=== PATIENT | male | born 1950 | race Caucasian/White ===

== ENCOUNTER → 2017-01-26 | Outpatient (CLI) | payer MEDICARE, BC ==
[~2017-01-26] MED LIST: AGM875T; ALLP300T PO; ALPR0.5T72; AMOX-358 PO; ASP81CT PO; CARI350T27; CEFD300C3 PO; CEPH500C; CHOL200035 PO; CYAN100071 PO; ETD400T; GLIP10TA13 PO; GLIP10TA23; HYDR-3720; LOSA1TAB3 PO; MTF500T PO; MTP25TSR PO; MULT-851 PO; MULT1TAB5; MULT1TAB5 PO; NAPR220C11 PO; OMG1KC PO; OXYC-188; SULF-222 PO; WRF10T; WRF10T PO; [UNRECOGNIZED DRUG - OTHER]; [UNRECOGNIZED DRUG - REMARK]
--- NOTE | 2017-01-27 13:38 | ECHOCARDIOGRAPHY REPORT ---
DATE OF SERVICE: 01/26/2017 PROCEDURE: TWO-DIMENSIONAL Echocardiogram REFERRING PHYSICIAN: Dr. Mcdowell. INDICATION: Sepsis. MEASUREMENTS: LVID end diastolic 4.1. IVS thickness 1.1. LVPW thickness 1.1. Left atrial diameter of 3.7. Ejection fraction 60%. FINDINGS: 1. Technical quality is good. 2. The left ventricle is normal in size with normal contractility, systolic function appeared to be normal. Estimated ejection fraction 60%. 3. The left atrium is normal in size. No clot or thrombus were seen within the left atrium. 4. The right atrium and right ventricle are normal in size. No clot or thrombus were seen within the right side. 5. Mitral valve is normal in morphology with mild mitral regurgitation noted by color Doppler flow. No mitral valve prolapse. No mitral valve stenosis. 6. 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 Appeared to be functioning normally. Doppler across the prosthetic valve estimated the peak gradient of 22 mmHg, mean gradient of 11 mmHg, calculated valve area of 2.1 sq cm. 7. Tricuspid valve is normal in morphology with mild tricuspid regurgitation noted by color Doppler flow. Doppler across the tricuspid valve estimated pulmonary artery pressure of 24 plus right atrial pressure. 8. Pulmonic valve is functioning normally. 9. No pericardial effusion. CONCLUSION: 1. Normal left ventricular size and systolic function. Estimated ejection fraction is 60%. 2. 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 3. Mild mitral and tricuspid regurgitation. 4. Estimated pulmonary artery pressure of 30 mmHg. Job ID: [id number] DocumentID: [id number] Dictated Date: 01/26/2017 17:23:45 [employer] Alarm Installer Date: 01/26/2017 17:39:44 Dictated By: CURTIS COLE MD
== END ==
LOC: CARD 08:01
PROVIDERS: ATTEND Internal Medicine Cardiovascular Disease
DX: I25.10 Atherosclerotic heart disease of native coronary artery without angina pectoris (principal); I65.23 Occlusion and stenosis of bilateral carotid arteries; I10 Essential (primary) hypertension; E11.9 Type 2 diabetes mellitus without complications; E78.2 Mixed hyperlipidemia
CPT/HCPCS: 93306

== ENCOUNTER → 2017-05-11 | Outpatient (CLI) | payer MEDICARE, BC ==
[~2017-05-11] MED LIST changes: +CATHETER FLUSH 10 ML SYR IV PRN
== END ==
LOC: CARD 07:24
PROVIDERS: ATTEND Internal Medicine Cardiovascular Disease
DX: I25.10 Atherosclerotic heart disease of native coronary artery without angina pectoris (principal); I65.23 Occlusion and stenosis of bilateral carotid arteries; I10 Essential (primary) hypertension; E78.2 Mixed hyperlipidemia; E11.9 Type 2 diabetes mellitus without complications

== ENCOUNTER → 2017-05-20 | Outpatient (CLI) | payer MEDICARE, BC ==
[2017-05-20 09:02] VITALS: BP 150/75
[2017-05-20 09:14] VITALS: BP 166/72
[2017-05-20 09:16] VITALS: BP 163/79
[2017-05-20 09:19] VITALS: BP 151/92
--- NOTE | 2017-05-21 04:57 | STRESS TEST ---
DATE OF SERVICE: 05/20/2017 EXERCISE MYOVIEW STRESS TEST REPORT REFERRING PHYSICIAN: Dr. Mcdowell. TEST DATE: 05/20/2017. Baseline heart rate is 75. Baseline blood pressure is 159/80. Baseline EKG is sinus rhythm with no ischemic changes. In summary, the patient was injected with 10.91 mCi of technetium-99 Myoview and the resting images were obtained. Then, the patient started exercising with a baseline heart rate, blood pressure and EKG mentioned above. The patient was able to exercise for a total of 3 minutes and 45 seconds on standard Noe protocol, achieving maximum heart rate of 139. Prior to the peak exercise level, he was injected with 32.5 mCi of technetium-99 Myoview. With peak exercise level, EKG was showing minimal nondiagnostic changes. Blood pressure was at peak of 190/72. During recovery, heart rate and blood pressure returned to baseline. EKG returned to baseline. The resting and stress images were reviewed and compared in the short axis, horizontal long axis and vertical long axis views. Review of the images showed diaphragmatic attenuation with typical male pattern. Mild decreased uptake involving the mid to apical inferior wall with no significant reversibility. SSS is 2, SDS 2, TID value 1.02. On the gated images, the left ventricle appeared to be normal size with normal contractility. Calculated ejection fraction 54%. CONCLUSION: 1. Fair exercise tolerance, a total of 3 minutes and 45 seconds on standard Noe protocol, total of 5.4 METs achieving 91% of maximum expected heart rate. 2. Appropriate heart rate and blood pressure response to exercise returned to baseline during recovery. 3. Nondiagnostic EKG changes with exercise returned to baseline during recovery. 4. Diaphragmatic attenuation with typical male pattern with no significant ischemia or infarction on SPECT images. 5. Normal left ventricular size with normal contractility, calculated ejection fraction 54%. Job ID: [id number] DocumentID: [id number] Dictated Date: 05/20/2017 16:09:36 Pitch Gatherer Date: 05/20/2017 18:29:31 Dictated By: CURTIS COLE MD
== END ==
LOC: CARD 07:44
PROVIDERS: ATTEND Internal Medicine Cardiovascular Disease
DX: I25.10 Atherosclerotic heart disease of native coronary artery without angina pectoris (principal); I65.23 Occlusion and stenosis of bilateral carotid arteries; E11.9 Type 2 diabetes mellitus without complications; I10 Essential (primary) hypertension; E78.2 Mixed hyperlipidemia
CPT/HCPCS: 78452; 93017

== ENCOUNTER → 2018-09-14 | Outpatient (CLI) | payer MEDICARE, BC ==
[~2018-09-14] MED LIST changes: -CATHETER FLUSH 10 ML SYR IV PRN
== END ==
LOC: CARD 08:24
PROVIDERS: ATTEND Internal Medicine Cardiovascular Disease
DX: I25.10 Atherosclerotic heart disease of native coronary artery without angina pectoris (principal); I65.23 Occlusion and stenosis of bilateral carotid arteries; E11.9 Type 2 diabetes mellitus without complications; I10 Essential (primary) hypertension; E78.2 Mixed hyperlipidemia; I08.2 Rheumatic disorders of both aortic and tricuspid valves; Z95.2 Presence of prosthetic heart valve
CPT/HCPCS: 93306

== ENCOUNTER 2020-03-31 18:07 | Emergency (ER) | payer MEDICARE, BC ==
[~2020-03-31] VITALS: Ht 177.8 cm; Wt 96.2 kg
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
--- OUTSIDE RECORDS SUMMARY | 2020-03-31 18:12 | XMS REPORT | CCD ---
Author Author Dionisio Solo D.O. Organization [facility] DO [facility] Address [address] [place] [address] Phone Care Team Providers Care Commuter Train Operator Name Role Phone PP Unavailable CCM Unavailable Summary Purpose Interface Exchange Insurance Providers Payer name Policy type / Coverage type Covered republican ID Effective Begin Date Effective End Date WPS MEDICARE PART B [place] Blue Cross/Blue Shield [id number] 2019 216 Unknown Blue Cross Blue Shield Blue Cross/Blue Shield [id number] 2019 Unknown Family History Family History data not found Social History Social History Element Codes Description Effective Dates Marital status Unknown 11/14/2019 Number of children Unknown 2 11/14/2019 Employment Unknown Currently employed 11/14/2019 Allergies, Adverse Reactions, Alerts Substance Reaction Codes Entered Date Inactivated Date Status * NO KNOWN ENVIRONMENTAL ALLERGIES Unknown 11/14/2019 N o Inactive Date Active * NO KNOWN FOOD ALLERGIES Unknown 11/14/2019 No Inactiv e Date Active _ Unknown 11/14/2019 No Inactive Date Active Problems Condition Codes Effective Dates Condition Status Diabetic neuropathy ICD-9: 250.60 ICD-10: E11.40 11/14/2019 Active Essential hypertension ICD-9: 401.9 ICD-10: I10 11/14/2019 Active Hypertension Unknown 11/14/2019 Active H/O aortic valve replacement ICD-9: V43.3 ICD-10: Z95.2 11/14/2019 Active Mixed hyperlipidemia ICD-9: 272.2 ICD-10: E78.2 11/14/2019 Active Medications Medication Codes Instructions Start Date Stop Date Status Fill Instructions allopurinol 100 mg tablet RxNorm: 958583 1 Tablet(s) Oral QD 201905/21/2020 Active gabapentin 100 mg capsule RxNorm: 484366 2 Capsule(s) O ral QAM and 3 capsules in the evening 11/24/2019 05/22/2020 Active gabapentin 100 mg capsule RxNorm: 379682 2 Capsule(s) O ral QAM and 3 capsules in the evening 11/24/2019 11/23/2019 Inactive clonidine HCl 0.2 mg tablet RxNorm: 156697 2 Tablet(s) Oral QD 10/29 No Stop Date Active meloxicam 15 mg tablet RxNorm: 264309 1 Tablet(s) Oral QD 0 No Stop Date Active telmisartan 80 mg-hydrochlorothiazide 25 mg tablet RxNorm: 4 52963 1 Tablet(s) Oral QAM 11/16/2019 02/14/2020 Inactive glipizide 10 mg tablet RxNorm: 513469 1 Tablet(s) Oral QD 11/16/2019 02/14/2020 Inactive citalopram 10 mg tablet RxNorm: 016325 1 Tablet(s) Oral QD 11/16/19 No Stop Date Active metformin 500 mg tablet RxNorm: 098658 2 Tablet(s) Oral QD 11/16/19 20 02/14/2020 Inactive finasteride 5 mg tablet RxNorm: 959378 1 Tablet(s) Oral QD 11/16/19 No Stop Date Active amlodipine 10 mg tablet RxNorm: 929454 1 Tablet(s) Oral QD 11/16/19 20 02/14/2020 Inactive Coumadin 10 mg tablet RxNorm: 650963 1 Tablet(s) Oral M on, , Thu, ,Sat, and Sun then 10.5mg on 11/16/2019 11/16/2019 Inactive Fish Oil 120 mg-180 mg-60 mg-1,200 mg capsule,delayed releas e RxNorm: 2 Capsule(s) Oral QD 11/16/2019 No Stop Date Active Calcium 600 + D(3) 600 mg (1,500 mg)-200 unit tablet RxNorm: 576192 1 Tablet(s) Oral QD 11/16/2019 No Stop Date Active hydralazine 10 mg tablet RxNorm: 104035 2 Tablet(s) Oral QD 020 02/14/2020 Inactive vitamin E 1,000 unit capsule RxNorm: 220618 1 Capsule(s) Oral QD No Stop Date Active metoprolol succinate ER 50 mg tablet,extended release 24 hr RxNorm: 250370 1 Tablet(s) Oral QD 11/16/2019 No Stop Date Active Vitamin C 1,000 mg tablet RxNorm: 832016 1 Tablet(s) Oral QD 2019 No Stop Date Active multivitamin tablet RxNorm: 1 Tablet(s) Oral QD 11/16/2019 No Stop D ate Active aspirin 81 mg tablet,delayed release RxNorm: 815575 1 Tablet(s) Oral QD 11/16/2019 No Stop Date Active rosuvastatin 5 mg tablet RxNorm: 361372 1 Tablet(s) Oral every night at bedtime 11/16/2019 02/14/2020 Inactive Tylenol Arthritis Pain 650 mg tablet,extended release RxNorm : 7313406 3 Tablet(s) Oral QD 11/16/2019 No Stop Date Active tamsulosin 0.4 mg capsule RxNorm: 603712 1 Capsule(s) Oral QPM before supper 11/16/2019 No Stop Date Active allopurinol 100 mg tablet RxNorm: 912340 1 Tablet(s) Oral QD 201902/14/2020 Inactive Coumadin 10 mg tablet RxNorm: 601866 1 Tablet(s) Oral M on, , Thu, , Sat & Sun then 10.5mg on 11/16/2019 11/15/2019 Inactive Vitamin B12 1000mcg Tablet RxNorm: 1 Tablet(s) Oral QD 11/16/2019 02/14/2020 Inactive gabapentin 100 mg capsule RxNorm: 052456 2 Capsule(s) O ral QAM and 3 capsules in the evening 11/16/2019 11/23/2019 Inactive Medication Administered No Medication Administered data Immunizations No Immunization data Results No Results data Procedures No Procedures data Vital Signs Date Vital 02/14/2020 Blood Pressure 1: 134/82 Code: 8480-6 Heart Rate 1: 77 bpm Respiratory Rate: 18 bpm SpO2: 99% Temperature: 36.9 (C) / 98.4 (F) We ight: 222 lbs 11/14/2019 Blood Pressure 1: 124/82 Code: 8480-6 BMI: 30.8 Code: 63789-4 Heart Rate 1: 76 bpm Height: 5'11" Respiratory Rate: 20 bpm SpO2: 98% Tempera ture: 36.8 (C) / 98.2 (F) Weight: 221 lbs Functional Status No Functional Status data Reason For Visit Reason For Visit Effective Dates Notes follow up 02/14/2020 pt /inr ~generic 11/14/2019 New Patient--nael hernandez visit Encounters Encounter Performer Location Codes Date () OFFICE/OUTPATIENT VISIT EST Diagnosis: Diabetic neuropathy[ICD10: E11.40] Diagnosis: Essential hypertension[ICD10: I10] Carolynn KIRAN [employer] CPT-4: 86894 02/14/2020 OFFICE/OUTPATIENT VISIT NEW Diagnosis: Diabetic neuropathy[ICD10: E11.40] Diagnosis: H/O aortic valve replacement[ICD10: Z95.2] Diagnosis: Essential hypertension[ICD10: I10] Diagnosis: Mixed hyperlipidemia[ICD10: E78.2] Carolynn KIRAN [employer] CPT-4: 00754 11/14/2019 Plan of Care Planned Activity Notes Codes Status Date Visit Diagnosis Plan: Diabetic neuropathy Discussion: Update HbA1C with next PT/INR Follow Up: 4 months ICD-9 : 250.60 ICD-10 : E11.40 02/14/2020 Visit Diagnosis Plan: Essential hypertension Discussio n: Stable ICD-9 : 401.9 ICD-10 : I10 02/14/2020 [facility] [phone] [facility] [facility] 02/14/2020 Visit Diagnosis Plan: H/O aortic valve replacement Dis cussion: On coumadin--cardiology monitors ICD-9 : V43.3 ICD-10 : Z95.2 11/14/2019 Visit Diagnosis Plan: Diabetic neuropathy Discussion: On gabapentin Go tomorrow for fasting lab Recommend Diabetic shoes with inserts Follow Up: 3 months Discussion: On gabapentin Go tomorrow for fasting lab Follow Up: 3 months ICD-9 : 250.60 ICD-10 : E11.40 11/14/2019 Visit Diagnosis Plan: Mixed hyperlipidemia Discussion: Lipids every 6mos ICD-9 : 272.2 ICD-10 : E78.2 11/14/2019 Visit Diagnosis Plan: Essential hypertension Discussio n: Stable ICD-9 : 401.9 ICD-10 : I10 11/14/2019 App[facility]ment: Carolynn Solo [facility]el[facility] [phone] [id number] NEW [facility]IENT 11/14/2019 Instructions No Instructions Medical Equipment No Medical Equipment data Health Concerns Section Health Concerns data not found Goals Section Goals data not found Interventions Section Interventions data not found Health Status Evaluations/Outcomes Section Health Status Evaluations/Outcomes data not found Advance Directives No Advance Directive data
--- OUTSIDE RECORDS SUMMARY | 2020-03-31 18:12 | XMS REPORT | CCD ---
Author Author Dionisio Solo D.O. Organization [facility] Address [address] [place] [address] Phone Care Team Providers Care Hair Spring Winder Name Role Phone PP Unavailable CCM Unavailable Summary Purpose Interface Exchange Insurance Providers Payer name Policy type / Coverage type Covered constitution party ID Effective Begin Date Effective End Date WPS MEDICARE PART B [place] Blue Cross/Blue Shield [id number] 2019 216 Unknown Blue Cross Blue Shield Blue Cross/Blue Shield [id number] 2019 Unknown Family History Family History data [...] Date Stop Date Status Fill Instructions allopurinol 300 mg tablet RxNorm: 026333 1 Tablet(s) Oral QD 201905/27/2020 Active allopurinol 300 mg tablet RxNorm: 1 Tablet(s) Oral QD 201902/26/2020 Inactive allopurinol 100 mg tablet RxNorm: 939180 1 Tablet(s) Oral QD 201902/26/2020 Inactive gabapentin 100 mg capsule RxNorm: 367516 2 Capsule(s) O ral QAM and 3 capsules in the evening 11/24/2019 05/22/2020 Active gabapentin 100 mg capsule RxNorm: 547376 2 Capsule(s) O ral QAM and 3 capsules in the evening 11/24/2019 11/23/2019 Inactive clonidine HCl 0.2 mg tablet RxNorm: 009270 2 Tablet(s) Oral QD 10/29 No Stop Date Active meloxicam 15 mg tablet RxNorm: 958513 1 Tablet(s) Oral QD 0 No Stop Date Active telmisartan 80 mg-hydrochlorothiazide 25 mg tablet RxNorm: 4 53315 1 Tablet(s) Oral QAM 11/16/2019 02/14/2020 Inactive glipizide 10 mg tablet RxNorm: 555958 1 Tablet(s) Oral QD 11/16/2019 02/14/2020 Inactive citalopram 10 mg tablet RxNorm: 454316 1 Tablet(s) Oral QD 11/16/19 No Stop Date Active metformin 500 mg tablet RxNorm: 434029 2 Tablet(s) Oral QD 11/16/19 20 02/14/2020 Inactive finasteride 5 mg tablet RxNorm: 124780 1 Tablet(s) Oral QD 11/16/19 No Stop Date Active amlodipine 10 mg tablet RxNorm: 969865 1 Tablet(s) Oral QD 11/16/19 20 02/14/2020 Inactive Coumadin 10 mg tablet RxNorm: 460015 1 Tablet(s) Oral M on, Tu, Wed, Th,Sat, and Sun then 10.5mg on 11/16/2019 11/16/2019 Inactive Fish Oil 120 mg-180 mg-60 mg-1,200 mg capsule,delayed releas e RxNorm: 2 Capsule(s) Oral QD 11/16/2019 No Stop Date Active Calcium 600 + D(3) 600 mg (1,500 mg)-200 unit tablet RxNorm: 847001 1 Tablet(s) Oral QD 11/16/2019 No Stop Date Active hydralazine 10 mg tablet RxNorm: 839860 2 Tablet(s) Oral QD 020 02/14/2020 Inactive vitamin E 1,000 unit capsule RxNorm: 073019 1 Capsule(s) Oral QD No Stop Date Active metoprolol succinate ER 50 mg tablet,extended release 24 hr RxNorm: 184667 1 Tablet(s) Oral QD 11/16/2019 No Stop Date Active Vitamin C 1,000 mg tablet RxNorm: 373018 1 Tablet(s) Oral QD 2019 No Stop Date Active multivitamin tablet RxNorm: 1 Tablet(s) Oral QD 11/16/2019 No Stop D ate Active aspirin 81 mg tablet,delayed release RxNorm: 825246 1 Tablet(s) Oral QD 11/16/2019 No Stop Date Active rosuvastatin 5 mg tablet RxNorm: 744652 1 Tablet(s) Oral every night at bedtime 11/16/2019 02/14/2020 Inactive Tylenol Arthritis Pain 650 mg tablet,extended release RxNorm : 5112525 3 Tablet(s) Oral QD 11/16/2019 No Stop Date Active tamsulosin 0.4 mg capsule RxNorm: 856828 1 Capsule(s) Oral QPM before supper 11/16/2019 No Stop Date Active allopurinol 100 mg tablet RxNorm: 768048 1 Tablet(s) Oral QD 201902/14/2020 Inactive Coumadin 10 mg tablet RxNorm: 882677 1 Tablet(s) Oral M on, , Thu, , Sat & Sun then 10.5mg on Thu11/16/2019 11/15/2019 Inactive Vitamin B12 1000mcg Tablet RxNorm: 1 Tablet(s) Oral QD 11/16/2019 02/14/2020 Inactive gabapentin 100 mg capsule RxNorm: 396942 2 Capsule(s) O ral QAM and 3 [...] 1: 124/82 Code: 8480-6 BMI: 30.8 Code: 94711-4 Heart Rate 1: 76 bpm Height: 5'11" [...] E11.40] Diagnosis: Essential hypertension[ICD10: I10] Carolynn KIRAN [employer] CPT-4: 01218 02/14/2020 OFFICE/OUTPATIENT VISIT NEW Diagnosis: Diabetic neuropathy[ICD10: E11.40] Diagnosis: H/O aortic valve replacement[ICD10: Z95.2] Diagnosis: Essential hypertension[ICD10: I10] Diagnosis: Mixed hyperlipidemia[ICD10: E78.2] Carolynn KIRAN [employer] CPT-4: 12198 11/14/2019 Plan of Care Planned Activity Notes Codes Status Date Visit Diagnosis Plan: Diabetic neuropathy Discussion: Update HbA1C with next PT/INR Follow Up: 4 months ICD-9 : 250.60 ICD-10 : E11.40 02/14/2020 Visit Diagnosis Plan: Essential hypertension Discussio n: Stable ICD-9 : 401.9 ICD-10 : I10 02/14/2020 [facility]ment: [facility] [phone] [facility] [facility] 02/14/2020 Visit Diagnosis Plan: H/O [...] I10 11/14/2019 Appointment: [facility] [phone] [facility] [facility] 11/14/2019 Instructions No Instructions Medical Equipment No Medical Equipment data Health Concerns Section Health Concerns data not found Goals Section Goals data not found Interventions Section Interventions data not found Health Status Evaluations/Outcomes Section Health Status Evaluations/Outcomes data not found Advance Directives No Advance Directive data
--- OUTSIDE RECORDS SUMMARY | 2020-03-31 18:12 | XMS REPORT | CCD ---
Author Author Dionisio Solo D.O. Organization [facility] Address [address] [place] [address] Phone Care Team Providers Care Customs Patrol Officer Name Role Phone PP Unavailable CCM Unavailable Summary Purpose Interface Exchange Insurance Providers Payer name Policy type / Coverage type Covered constitution party ID Effective Begin Date Effective End Date WPS MEDICARE PART B [place] Blue Cross/Blue Shield [id number] 2019 216 Unknown Blue Cross Blue Shield Blue Cross/Blue Shield [id number] 2019 Unknown Family History Family History data [...] Start Date Stop Date Status Fill Instructions metformin 500 mg tablet RxNorm: 149288 2 Tablet(s) Oral QD 02/27/20 20 05/26/2020 Active allopurinol 300 mg tablet RxNorm: 918270 1 Tablet(s) Oral QD 201905/27/2020 Active allopurinol 300 mg tablet RxNorm: 379062 1 Tablet(s) Oral QD 201902/26/2020 Inactive allopurinol 100 mg tablet RxNorm: 961500 1 Tablet(s) Oral QD 201902/26/2020 Inactive gabapentin 100 mg capsule RxNorm: 191689 2 Capsule(s) O ral QAM and 3 capsules in the evening 11/24/2019 05/22/2020 Active gabapentin 100 mg capsule RxNorm: 900367 2 Capsule(s) O ral QAM and 3 capsules in the evening 11/24/2019 11/23/2019 Inactive clonidine HCl 0.2 mg tablet RxNorm: 173754 2 Tablet(s) Oral QD 10/29 No Stop Date Active meloxicam 15 mg tablet RxNorm: 420925 1 Tablet(s) Oral QD 0 No Stop Date Active telmisartan 80 mg-hydrochlorothiazide 25 mg tablet RxNorm: 4 91947 1 Tablet(s) Oral QAM 11/16/2019 02/14/2020 Inactive glipizide 10 mg tablet RxNorm: 654147 1 Tablet(s) Oral QD 11/16/2019 02/14/2020 Inactive citalopram 10 mg tablet RxNorm: 210173 1 Tablet(s) Oral QD 11/16/19 No Stop Date Active finasteride 5 mg tablet RxNorm: 734661 1 Tablet(s) Oral QD 11/16/19 No Stop Date Active amlodipine 10 mg tablet RxNorm: 266922 1 Tablet(s) Oral QD 11/16/19 20 02/14/2020 Inactive Coumadin 10 mg tablet RxNorm: 949945 1 Tablet(s) Oral M on, Tu, Wed, Th,Sat, and Sun then 10.5mg on 11/16/2019 11/16/2019 Inactive Fish Oil 120 mg-180 mg-60 mg-1,200 mg capsule,delayed releas e RxNorm: 2 Capsule(s) Oral QD 11/16/2019 No Stop Date Active Calcium 600 + D(3) 600 mg (1,500 mg)-200 unit tablet RxNorm: 889439 1 Tablet(s) Oral QD 11/16/2019 No Stop Date Active hydralazine 10 mg tablet RxNorm: 477187 2 Tablet(s) Oral QD 020 02/14/2020 Inactive vitamin E 1,000 unit capsule RxNorm: 428027 1 Capsule(s) Oral QD No Stop Date Active metoprolol succinate ER 50 mg tablet,extended release 24 hr RxNorm: 807333 1 Tablet(s) Oral QD 11/16/2019 No Stop Date Active Vitamin C 1,000 mg tablet RxNorm: 123939 1 Tablet(s) Oral QD 2019 No Stop Date Active multivitamin tablet RxNorm: 1 Tablet(s) Oral QD 11/16/2019 No Stop D ate Active aspirin 81 mg tablet,delayed release RxNorm: 763325 1 Tablet(s) Oral QD 11/16/2019 No Stop Date Active rosuvastatin 5 mg tablet RxNorm: 473443 1 Tablet(s) Oral every night at bedtime 11/16/2019 02/14/2020 Inactive Tylenol Arthritis Pain 650 mg tablet,extended release RxNorm : 3293657 3 Tablet(s) Oral QD 11/16/2019 No Stop Date Active tamsulosin 0.4 mg capsule RxNorm: 155329 1 Capsule(s) Oral QPM before supper 11/16/2019 No Stop Date Active metformin 500 mg tablet RxNorm: 990436 2 Tablet(s) Oral QD 11/16/19 20 02/14/2020 Inactive allopurinol 100 mg tablet RxNorm: 605353 1 Tablet(s) Oral QD 201902/14/2020 Inactive Coumadin 10 mg tablet RxNorm: 603445 1 Tablet(s) Oral M on, , Thu, , Sat & Sun then 10.5mg on Thu11/16/2019 11/15/2019 Inactive Vitamin B12 1000mcg Tablet RxNorm: 1 Tablet(s) Oral QD 11/16/2019 02/14/2020 Inactive gabapentin 100 mg capsule RxNorm: 877341 2 Capsule(s) O ral QAM and 3 [...] 1: 124/82 Code: 8480-6 BMI: 30.8 Code: 62734-4 Heart Rate 1: 76 bpm Height: 5'11" [...] E11.40] Diagnosis: Essential hypertension[ICD10: I10] Carolynn KIRAN [employer] CPT-4: 98211 02/14/2020 OFFICE/OUTPATIENT VISIT NEW Diagnosis: Diabetic neuropathy[ICD10: E11.40] Diagnosis: H/O aortic valve replacement[ICD10: Z95.2] Diagnosis: Essential hypertension[ICD10: I10] Diagnosis: Mixed hyperlipidemia[ICD10: E78.2] Carolynn KIRAN [employer] CPT-4: 93023 11/14/2019 Plan of Care Planned Activity Notes Codes Status Date Visit Diagnosis Plan: Diabetic neuropathy Discussion: Update HbA1C with next PT/INR Follow Up: 4 months ICD-9 : 250.60 ICD-10 : E11.40 02/14/2020 Visit Diagnosis Plan: Essential hypertension Discussio n: Stable ICD-9 : 401.9 ICD-10 : I10 02/14/2020 [facility]ment: [facility] [phone] [facility] [facility] 02/14/2020 Visit Diagnosis Plan: [...] I10 11/14/2019 Appointment: Carolynn Solo [facility]el[facility] [phone] [facility] NEW [facility]IENT 11/14/2019 Instructions No Instructions Medical Equipment No Medical Equipment data Health Concerns Section Health Concerns data not found Goals Section Goals data not found Interventions Section Interventions data not found Health Status Evaluations/Outcomes Section Health Status Evaluations/Outcomes data not found Advance Directives No Advance Directive data
--- OUTSIDE RECORDS SUMMARY | 2020-03-31 18:13 | XMS REPORT | CCD ---
Author Author Dionisio Solo D.O. Organization [facility]O [facility] Address [address] [place] [address] Phone Care Team Providers Care Mounter Hand Name Role Phone PP Unavailable CCM Unavailable Summary Purpose Interface Exchange Insurance Providers Payer name Policy type / Coverage type Covered alliance party ID Effective Begin Date Effective End Date WPS MEDICARE PART B [place] Blue Cross/Blue Shield [id number] 2019 216 Unknown Blue Cross Blue Shield Blue Cross/Blue Shield [id number] 2019 Unknown Family History Family History data [...] Start Date Stop Date Status Fill Instructions gabapentin 100 mg capsule RxNorm: 715693 2 Capsule(s) O ral QAM and 3 capsules in the evening 11/24/2019 05/22/2020 Active gabapentin 100 mg capsule RxNorm: 209838 2 Capsule(s) O ral QAM and 3 capsules in the evening 11/24/2019 11/23/2019 Inactive clonidine HCl 0.2 mg tablet RxNorm: 432795 2 Tablet(s) Oral QD 10/29 No Stop Date Active meloxicam 15 mg tablet RxNorm: 829816 1 Tablet(s) Oral QD 0 No Stop Date Active telmisartan 80 mg-hydrochlorothiazide 25 mg tablet RxNorm: 4 62346 1 Tablet(s) Oral QAM 11/16/2019 02/14/2020 Inactive glipizide 10 mg tablet RxNorm: 864114 1 Tablet(s) Oral QD 11/16/2019 02/14/2020 Inactive citalopram 10 mg tablet RxNorm: 022175 1 Tablet(s) Oral QD 11/16/19 No Stop Date Active metformin 500 mg tablet RxNorm: 704993 2 Tablet(s) Oral QD 11/16/19 20 02/14/2020 Inactive finasteride 5 mg tablet RxNorm: 101488 1 Tablet(s) Oral QD 11/16/19 No Stop Date Active amlodipine 10 mg tablet RxNorm: 776806 1 Tablet(s) Oral QD 11/16/19 20 02/14/2020 Inactive Coumadin 10 mg tablet RxNorm: 081895 1 Tablet(s) Oral M on, , Thu, ,Sat, and Sun then 10.5mg on Thu11/16/2019 11/16/2019 Inactive Fish Oil 120 mg-180 mg-60 mg-1,200 mg capsule,delayed releas e RxNorm: 2 Capsule(s) Oral QD 11/16/2019 No Stop Date Active Calcium 600 + D(3) 600 mg (1,500 mg)-200 unit tablet RxNorm: 224586 1 Tablet(s) Oral QD 11/16/2019 No Stop Date Active allopurinol 100 mg tablet RxNorm: 008434 1 Tablet(s) Oral QD 201902/14/2020 Inactive hydralazine 10 mg tablet RxNorm: 264018 2 Tablet(s) Oral QD 020 02/14/2020 Inactive vitamin E 1,000 unit capsule RxNorm: 791063 1 Capsule(s) Oral QD No Stop Date Active metoprolol succinate ER 50 mg tablet,extended release 24 hr RxNorm: 821786 1 Tablet(s) Oral QD 11/16/2019 No Stop Date Active Vitamin C 1,000 mg tablet RxNorm: 288147 1 Tablet(s) Oral QD 2019 No Stop Date Active multivitamin tablet RxNorm: 1 Tablet(s) Oral QD 11/16/2019 No Stop D ate Active aspirin 81 mg tablet,delayed release RxNorm: 590089 1 Tablet(s) Oral QD 11/16/2019 No Stop Date Active Vitamin B12 1000mcg Tablet RxNorm: 1 Tablet(s) Oral QD 11/16/2019 02/14/2020 Inactive rosuvastatin 5 mg tablet RxNorm: 457003 1 Tablet(s) Oral every night at bedtime 11/16/2019 02/14/2020 Inactive Tylenol Arthritis Pain 650 mg tablet,extended release RxNorm : 5774118 3 Tablet(s) Oral QD 11/16/2019 No Stop Date Active tamsulosin 0.4 mg capsule RxNorm: 742362 1 Capsule(s) Oral QPM before supper 11/16/2019 No Stop Date Active Coumadin 10 mg tablet RxNorm: 390432 1 Tablet(s) Oral M on, , Thu, , Sat & Sun then 10.5mg on Thu11/16/2019 11/15/2019 Inactive gabapentin 100 mg capsule RxNorm: 518450 2 Capsule(s) O ral QAM and 3 [...] 1: 124/82 Code: 8480-6 BMI: 30.8 Code: 76697-0 Heart Rate 1: 76 bpm Height: 5'11" Respiratory Rate: 20 bpm SpO2: 98% Tempera ture: 36.8 (C) / 98.2 (F) Weight: 221 lbs Functional Status No Functional Status data Reason For Visit Reason For Visit Effective Dates Notes follow up 02/14/2020 pt /inr ~generic 11/14/2019 New Patient--establi sarahg visit Encounters Encounter Performer Location Codes Date () OFFICE/OUTPATIENT VISIT EST Diagnosis: Diabetic neuropathy[ICD10: E11.40] Diagnosis: Essential hypertension[ICD10: I10] Carolynn KIRAN [employer] CPT-4: 77448 02/14/2020 OFFICE/OUTPATIENT VISIT NEW Diagnosis: Diabetic neuropathy[ICD10: E11.40] Diagnosis: H/O aortic valve replacement[ICD10: Z95.2] Diagnosis: Essential hypertension[ICD10: I10] Diagnosis: Mixed hyperlipidemia[ICD10: E78.2] Carolynn GARRISON [employer] CPT-4: 53890 11/14/2019 Plan of Care Planned Activity Notes Codes Status Date Visit Diagnosis Plan: Diabetic neuropathy Discussion: Update HbA1C with next PT/INR Follow Up: 4 months ICD-9 : 250.60 ICD-10 : E11.40 02/14/2020 Visit Diagnosis Plan: Essential hypertension Discussio n: Stable ICD-9 : 401.9 ICD-10 : I10 02/14/2020 Visit Diagnosis Plan: H/O aortic valve [...] I10 11/14/2019 Appointment: Carolynn Solo [facility]el[facility] [phone] [facility] [facility] 11/14/2019 Instructions No Instructions Medical Equipment No Medical Equipment data Health Concerns Section Health Concerns data not found Goals Section Goals data not found Interventions Section Interventions data not found Health Status Evaluations/Outcomes Section Health Status Evaluations/Outcomes data not found Advance Directives No Advance Directive data
--- OUTSIDE RECORDS SUMMARY | 2020-03-31 18:13 | XMS REPORT | CCD ---
Author Author Dionisio Solo D.O. Organization [facility] Address [address] [place] [address] Phone Care Team Providers Care Injection Wax Molder Name Role Phone PP Unavailable CCM Unavailable Summary Purpose Interface Exchange Insurance Providers Payer name Policy type / Coverage type Covered constitution party ID Effective Begin Date Effective End Date WPS MEDICARE PART B [place] Blue Cross/Blue Shield [id number] 2019 216 Unknown Blue Cross Blue Shield Blue Cross/Blue Shield [id number] 2019 Unknown Family History Family History data [...] Fill Instructions gabapentin 100 mg capsule RxNorm: 703814 2 Capsule(s) O ral QAM and 3 capsules in the evening 11/24/2019 05/22/2020 Active gabapentin 100 mg capsule RxNorm: 002657 2 Capsule(s) O ral QAM and 3 capsules in the evening 11/24/2019 11/23/2019 Inactive clonidine HCl 0.2 mg tablet RxNorm: 525438 2 Tablet(s) Oral QD 10/29 No Stop Date Active meloxicam 15 mg tablet RxNorm: 551570 1 Tablet(s) Oral QD 0 No Stop Date Active telmisartan 80 mg-hydrochlorothiazide 25 mg tablet RxNorm: 4 06817 1 Tablet(s) Oral QAM 11/16/2019 02/14/2020 Inactive glipizide 10 mg tablet RxNorm: 108701 1 Tablet(s) Oral QD 11/16/2019 02/14/2020 Inactive citalopram 10 mg tablet RxNorm: 947143 1 Tablet(s) Oral QD 11/16/19 No Stop Date Active metformin 500 mg tablet RxNorm: 744190 2 Tablet(s) Oral QD 11/16/19 20 02/14/2020 Inactive finasteride 5 mg tablet RxNorm: 120781 1 Tablet(s) Oral QD 11/16/19 No Stop Date Active amlodipine 10 mg tablet RxNorm: 496185 1 Tablet(s) Oral QD 11/16/19 20 02/14/2020 Inactive Coumadin 10 mg tablet RxNorm: 492432 1 Tablet(s) Oral M on, , Thu, ,Sat, and Sun then 10.5mg on Thu11/16/2019 11/16/2019 Inactive Fish Oil 120 mg-180 mg-60 mg-1,200 mg capsule,delayed releas e RxNorm: 2 Capsule(s) Oral QD 11/16/2019 No Stop Date Active Calcium 600 + D(3) 600 mg (1,500 mg)-200 unit tablet RxNorm: 026661 1 Tablet(s) Oral QD 11/16/2019 No Stop Date Active allopurinol 100 mg tablet RxNorm: 197175 1 Tablet(s) Oral QD 201902/14/2020 Inactive hydralazine 10 mg tablet RxNorm: 725583 2 Tablet(s) Oral QD 020 02/14/2020 Inactive vitamin E 1,000 unit capsule RxNorm: 438519 1 Capsule(s) Oral QD No Stop Date Active metoprolol succinate ER 50 mg tablet,extended release 24 hr RxNorm: 494733 1 Tablet(s) Oral QD 11/16/2019 No Stop Date Active Vitamin C 1,000 mg tablet RxNorm: 046829 1 Tablet(s) Oral QD 2019 No Stop Date Active multivitamin tablet RxNorm: 1 Tablet(s) Oral QD 11/16/2019 No Stop D ate Active aspirin 81 mg tablet,delayed release RxNorm: 937801 1 Tablet(s) Oral QD 11/16/2019 No Stop Date Active Vitamin B12 1000mcg Tablet RxNorm: 1 Tablet(s) Oral QD 11/16/2019 02/14/2020 Inactive rosuvastatin 5 mg tablet RxNorm: 866486 1 Tablet(s) Oral every night at bedtime 11/16/2019 02/14/2020 Inactive Tylenol Arthritis Pain 650 mg tablet,extended release RxNorm : 4793507 3 Tablet(s) Oral QD 11/16/2019 No Stop Date Active tamsulosin 0.4 mg capsule RxNorm: 360813 1 Capsule(s) Oral QPM before supper 11/16/2019 No Stop Date Active Coumadin 10 mg tablet RxNorm: 372959 1 Tablet(s) Oral M on, , Thu, , Sat & Sun then 10.5mg on Thu11/16/2019 11/15/2019 Inactive gabapentin 100 mg capsule RxNorm: 189342 2 Capsule(s) O ral QAM and 3 [...] 1: 124/82 Code: 8480-6 BMI: 30.8 Code: 83398-3 Heart Rate 1: 76 bpm Height: 5'11" [...] E11.40] Diagnosis: Essential hypertension[ICD10: I10] Carolynn KIRAN [employer] CPT-4: 29796 02/14/2020 OFFICE/OUTPATIENT VISIT NEW Diagnosis: Diabetic neuropathy[ICD10: E11.40] Diagnosis: H/O aortic valve replacement[ICD10: Z95.2] Diagnosis: Essential hypertension[ICD10: I10] Diagnosis: Mixed hyperlipidemia[ICD10: E78.2] Carolynn GARRISON [employer] CPT-4: 66108 11/14/2019 Plan of Care Planned Activity Notes [...] I10 11/14/2019 Appointment: [facility] Solo [facility] [phone] [facility] NEW PATIENT 11/14/2019 Instructions No Instructions Medical Equipment No Medical Equipment data Health Concerns Section Health Concerns data not found Goals Section Goals data not found Interventions Section Interventions data not found Health Status Evaluations/Outcomes Section Health Status Evaluations/Outcomes data not found Advance Directives No Advance Directive data
--- OUTSIDE RECORDS SUMMARY | 2020-03-31 18:13 | XMS REPORT | CCD ---
Author Author Dionisio Solo D.O. Organization [facility] Address [address] [place] [address] Phone Care Team Providers Care Football Scout Name Role Phone PP Unavailable CCM Unavailable Summary Purpose Interface Exchange Insurance Providers Payer name Policy type / Coverage type Covered republican ID Effective Begin Date Effective End Date Blue Cross Blue Shield Blue Cross/Blue [employer] [id number] 2019 Unknown Family History Family History data [...] Problems Condition Codes Effective Dates Condition Status Hypertension Unknown 11/14/2019 Active Diabetic neuropathy ICD-9: 250.60 ICD-10: E11.40 11/14/2019 Active Essential hypertension ICD-9: 401.9 ICD-10: I10 11/14/2019 Active H/O aortic valve replacement ICD-9: V43.3 ICD-10: Z95.2 11/14/2019 Active Mixed hyperlipidemia ICD-9: 272.2 ICD-10: E78.2 11/14/2019 Active Medications Medication Codes Instructions Start Date Stop Date Status Fill Instructions clonidine HCl 0.2 mg tablet RxNorm: 027024 2 Tablet(s) Oral QD 10/29 No Stop Date Active meloxicam 15 mg tablet RxNorm: 159666 1 Tablet(s) Oral QD 0 No Stop Date Active telmisartan 80 mg-hydrochlorothiazide 25 mg tablet RxNorm: 4 08406 1 Tablet(s) Oral QAM 11/16/2019 02/14/2020 Active glipizide 10 mg tablet RxNorm: 919121 1 Tablet(s) Oral QD 11/16/2019 02/14/2020 Active citalopram 10 mg tablet RxNorm: 463938 1 Tablet(s) Oral QD 11/16/19 No Stop Date Active metformin 500 mg tablet RxNorm: 167967 2 Tablet(s) Oral QD 11/16/19 20 02/14/2020 Active finasteride 5 mg tablet RxNorm: 747650 1 Tablet(s) Oral QD 11/16/19 No Stop Date Active amlodipine 10 mg tablet RxNorm: 816303 1 Tablet(s) Oral QD 11/16/19 20 02/14/2020 Active Coumadin 10 mg tablet RxNorm: 926852 1 Tablet(s) Oral M on, , Thu, ,Sat, and Sun then 10.5mg on Thu11/16/2019 11/16/2019 Inactive Fish Oil 120 mg-180 mg-60 mg-1,200 mg capsule,delayed releas e RxNorm: 2 Capsule(s) Oral QD 11/16/2019 No Stop Date Active allopurinol 100 mg tablet RxNorm: 449515 1 Tablet(s) Oral QD 201902/14/2020 Active hydralazine 10 mg tablet RxNorm: 814507 2 Tablet(s) Oral QD 020 02/14/2020 Active vitamin E 1,000 unit capsule RxNorm: 120761 1 Capsule(s) Oral QD No Stop Date Active metoprolol succinate ER 50 mg tablet,extended release 24 hr RxNorm: 609290 1 Tablet(s) Oral QD 11/16/2019 No Stop Date Active aspirin 81 mg tablet,delayed release RxNorm: 192929 1 Tablet(s) Oral QD 11/16/2019 No Stop Date Active rosuvastatin 5 mg tablet RxNorm: 406430 1 Tablet(s) Oral every night at bedtime 11/16/2019 02/14/2020 Active gabapentin 100 mg capsule RxNorm: 366666 2 Capsule(s) O ral QAM and 3 capsules in the evening 11/16/2019 No Stop Date Active Tylenol Arthritis Pain 650 mg tablet,extended release RxNorm : 9588658 3 Tablet(s) Oral QD 11/16/2019 No Stop Date Active tamsulosin 0.4 mg capsule RxNorm: 383368 1 Capsule(s) Oral QPM before supper 11/16/2019 No Stop Date Active Coumadin 10 mg tablet RxNorm: 764842 1 Tablet(s) Oral M on, , Thu, , Sat & Sun then 10.5mg on Thu11/16/2019 11/15/2019 Inactive Medication Administered No Medication Administered data Immunizations No Immunization data Results No Results data Procedures No Procedures data Vital Signs Date Vital 11/14/2019 Blood Pressure 1: 124/82 Code: 8480-6 BMI: 30.8 Code: 20749-2 Heart Rate 1: 76 bpm Height: 5'11" Respiratory Rate: 20 bpm SpO2: 98% Tempera ture: 36.8 (C) / 98.2 (F) Weight: 221 lbs Functional Status No Functional Status data Reason For Visit Reason For Visit Effective Dates Notes ~generic 11/14/2019 [facility] Encounters Encounter Performer Location Codes Date OFFICE/OUTPATIENT VISIT NEW Diagnosis: Diabetic neuropathy[ICD10: E11.40] Diagnosis: H/O aortic valve replacement[ICD10: Z95.2] Diagnosis: Essential hypertension[ICD10: I10] Diagnosis: Mixed hyperlipidemia[ICD10: E78.2] Carolynn SOLO DO [facility] CPT-4: 03618 11/14/2019 Plan of Care Planned Activity Notes Codes Status Date Visit Diagnosis Plan: Essential hypertension Discussio n: Stable ICD-9 : 401.9 ICD-10 : I10 11/14/2019 Visit Diagnosis Plan: Mixed hyperlipidemia Discussion: Lipids every 6mos ICD-9 : 272.2 ICD-10 : E78.2 11/14/2019 Visit Diagnosis Plan: Diabetic neuropathy Discussion: On gabapentin Go tomorrow for fasting lab Follow Up: 3 months ICD-9 : 250.60 ICD-10 : E11.40 11/14/2019 Visit Diagnosis Plan: H/O aortic valve replacement Dis cussion: On coumadin--cardiology monitors ICD-9 : V43.3 ICD-10 : Z95.2 11/14/2019 Appointment: Carolynn Solo WPtel: [phone] [id number] NEW PATIENT 11/14/2019 Instructions No Instructions Medical Equipment No Medical Equipment data Health Concerns Section Health Concerns data not found Goals Section Goals data not found Interventions Section Interventions data not found Health Status Evaluations/Outcomes Section Health Status Evaluations/Outcomes data not found Advance Directives No Advance Directive data
--- OUTSIDE RECORDS SUMMARY | 2020-03-31 18:13 | XMS REPORT | CCD ---
Author Author Dionisio Solo D.O. Organization [facility] Address [address] [place] [address] Phone Care Team Providers Care Secretarial Stenographer Name Role Phone PP Unavailable CCM Unavailable Summary Purpose Interface Exchange Insurance Providers Payer name Policy type / Coverage type Covered republican ID Effective Begin Date Effective End Date Blue Cross Blue Shield Blue Cross/Blue [employer] [id number] 2019 Unknown Family History Family History data [...] Fill Instructions gabapentin 100 mg capsule RxNorm: 060098 2 Capsule(s) O ral QAM and 3 capsules in the evening 11/24/2019 11/24/2019 Inactive clonidine HCl 0.2 mg tablet RxNorm: 255413 2 Tablet(s) Oral QD 10/29 No Stop Date Active meloxicam 15 mg tablet RxNorm: 266904 1 Tablet(s) Oral QD 0 No Stop Date Active telmisartan 80 mg-hydrochlorothiazide 25 mg tablet RxNorm: 4 82762 1 Tablet(s) Oral QAM 11/16/2019 02/14/2020 Active glipizide 10 mg tablet RxNorm: 199179 1 Tablet(s) Oral QD 11/16/2019 02/14/2020 Active citalopram 10 mg tablet RxNorm: 478785 1 Tablet(s) Oral QD 11/16/19 No Stop Date Active metformin 500 mg tablet RxNorm: 908485 2 Tablet(s) Oral QD 11/16/19 20 02/14/2020 Active finasteride 5 mg tablet RxNorm: 213421 1 Tablet(s) Oral QD 11/16/19 No Stop Date Active amlodipine 10 mg tablet RxNorm: 466881 1 Tablet(s) Oral QD 11/16/19 20 02/14/2020 Active Coumadin 10 mg tablet RxNorm: 893646 1 Tablet(s) Oral M on, , Thu, ,Sat, and Sun then 10.5mg on Thu11/16/2019 11/16/2019 Inactive Fish Oil 120 mg-180 mg-60 mg-1,200 mg capsule,delayed releas e RxNorm: 2 Capsule(s) Oral QD 11/16/2019 No Stop Date Active Calcium 600 + D(3) 600 mg (1,500 mg)-200 unit tablet RxNorm: 025391 1 Tablet(s) Oral QD 11/16/2019 No Stop Date Active allopurinol 100 mg tablet RxNorm: 161977 1 Tablet(s) Oral QD 201902/14/2020 Active hydralazine 10 mg tablet RxNorm: 172941 2 Tablet(s) Oral QD 020 02/14/2020 Active vitamin E 1,000 unit capsule RxNorm: 941145 1 Capsule(s) Oral QD No Stop Date Active metoprolol succinate ER 50 mg tablet,extended release 24 hr RxNorm: 988145 1 Tablet(s) Oral QD 11/16/2019 No Stop Date Active Vitamin C 1,000 mg tablet RxNorm: 334643 1 Tablet(s) Oral QD 2019 No Stop Date Active multivitamin tablet RxNorm: 1 Tablet(s) Oral QD 11/16/2019 No Stop D ate Active aspirin 81 mg tablet,delayed release RxNorm: 198481 1 Tablet(s) Oral QD 11/16/2019 No Stop Date Active Vitamin B12 1000mcg Tablet RxNorm: 1 Tablet(s) Oral QD 11/16/2019 02/14/2020 Active rosuvastatin 5 mg tablet RxNorm: 869886 1 Tablet(s) Oral every night at bedtime 11/16/2019 02/14/2020 Active Tylenol Arthritis Pain 650 mg tablet,extended release RxNorm : 1374343 3 Tablet(s) Oral QD 11/16/2019 No Stop Date Active tamsulosin 0.4 mg capsule RxNorm: 118810 1 Capsule(s) Oral QPM before supper 11/16/2019 No Stop Date Active Coumadin 10 mg tablet RxNorm: 264761 1 Tablet(s) Oral M on, , Thu, , Sat & Sun then 10.5mg on Thu11/16/2019 11/15/2019 Inactive gabapentin 100 mg capsule RxNorm: 644563 2 Capsule(s) O ral QAM and 3 capsules in the evening 11/16/2019 11/23/2019 Inactive Medication Administered No Medication Administered data Immunizations No Immunization data Results No Results data Procedures No Procedures data Vital Signs Date Vital 11/14/2019 Blood Pressure 1: 124/82 Code: 8480-6 BMI: 30.8 Code: 60590-5 Heart Rate 1: 76 bpm Height: 5'11" Respiratory Rate: 20 bpm SpO2: 98% Tempera ture: 36.8 (C) / 98.2 (F) Weight: 221 lbs Functional Status No Functional Status data Reason For Visit Reason For Visit Effective Dates Notes ~generic 11/14/2019 New Patient--nael david visit Encounters Encounter Performer Location Codes Date OFFICE/OUTPATIENT VISIT NEW Diagnosis: Diabetic neuropathy[ICD10: E11.40] Diagnosis: H/O aortic valve replacement[ICD10: Z95.2] Diagnosis: Essential hypertension[ICD10: I10] Diagnosis: Mixed hyperlipidemia[ICD10: E78.2] Carolynn SOLO DO [facility] CPT-4: 67117 11/14/2019 Plan of Care Planned Activity Notes Codes Status Date Visit Diagnosis Plan: H/O aortic valve replacement Dis cussion: On coumadin--cardiology monitors ICD-9 : V43.3 ICD-10 : Z95.2 11/14/2019 Visit Diagnosis Plan: Diabetic neuropathy Discussion: On gabapentin Go tomorrow for fasting lab Follow Up: 3 months ICD-9 : 250.60 ICD-10 : E11.40 11/14/2019 Visit Diagnosis Plan: Essential hypertension Discussio n: Stable ICD-9 : 401.9 ICD-10 : I10 11/14/2019 Visit Diagnosis Plan: Mixed hyperlipidemia Discussion: Lipids every 6mos ICD-9 : 272.2 ICD-10 : E78.2 11/14/2019 App[facility]ment: [facility] [phone] [id number] [facility] 11/14/2019 Instructions No Instructions Medical Equipment No Medical Equipment data Health Concerns Section Health Concerns data not found Goals Section Goals data not found Interventions Section Interventions data not found Health Status Evaluations/Outcomes Section Health Status Evaluations/Outcomes data not found Advance Directives No Advance Directive data
--- OUTSIDE RECORDS SUMMARY | 2020-03-31 18:13 | XMS REPORT | CCD ---
Author Author Dionisio Solo D.O. Organization [facility] Address [address] [place] [address] Phone Care Team Providers Care Process Control Tech Name Role Phone PP Unavailable CCM Unavailable Summary Purpose Interface Exchange Insurance Providers Payer name Policy type / Coverage type Covered republican ID Effective Begin Date Effective End Date WPS MEDICARE PART B [place] Blue Cross/Blue Shield [id number] 2019 216 Unknown Blue Cross Blue Shield Blue Cross/Blue Shield [id number] 2019 Unknown Family History Family History data [...] Fill Instructions gabapentin 100 mg capsule RxNorm: 180979 2 Capsule(s) O ral QAM and 3 capsules in the evening 11/24/2019 05/22/2020 Active gabapentin 100 mg capsule RxNorm: 314362 2 Capsule(s) O ral QAM and 3 capsules in the evening 11/24/2019 11/23/2019 Inactive clonidine HCl 0.2 mg tablet RxNorm: 042928 2 Tablet(s) Oral QD 10/29 No Stop Date Active meloxicam 15 mg tablet RxNorm: 792143 1 Tablet(s) Oral QD 0 No Stop Date Active telmisartan 80 mg-hydrochlorothiazide 25 mg tablet RxNorm: 4 80790 1 Tablet(s) Oral QAM 11/16/2019 02/14/2020 Inactive glipizide 10 mg tablet RxNorm: 344011 1 Tablet(s) Oral QD 11/16/2019 02/14/2020 Inactive citalopram 10 mg tablet RxNorm: 634687 1 Tablet(s) Oral QD 11/16/19 No Stop Date Active metformin 500 mg tablet RxNorm: 723684 2 Tablet(s) Oral QD 11/16/19 20 02/14/2020 Inactive finasteride 5 mg tablet RxNorm: 907864 1 Tablet(s) Oral QD 11/16/19 No Stop Date Active amlodipine 10 mg tablet RxNorm: 856225 1 Tablet(s) Oral QD 11/16/19 20 02/14/2020 Inactive Coumadin 10 mg tablet RxNorm: 674854 1 Tablet(s) Oral M on, , Thu, ,Sat, and Sun then 10.5mg on Thu11/16/2019 11/16/2019 Inactive Fish Oil 120 mg-180 mg-60 mg-1,200 mg capsule,delayed releas e RxNorm: 2 Capsule(s) Oral QD 11/16/2019 No Stop Date Active Calcium 600 + D(3) 600 mg (1,500 mg)-200 unit tablet RxNorm: 901330 1 Tablet(s) Oral QD 11/16/2019 No Stop Date Active allopurinol 100 mg tablet RxNorm: 131694 1 Tablet(s) Oral QD 201902/14/2020 Inactive hydralazine 10 mg tablet RxNorm: 286109 2 Tablet(s) Oral QD 020 02/14/2020 Inactive vitamin E 1,000 unit capsule RxNorm: 124891 1 Capsule(s) Oral QD No Stop Date Active metoprolol succinate ER 50 mg tablet,extended release 24 hr RxNorm: 713060 1 Tablet(s) Oral QD 11/16/2019 No Stop Date Active Vitamin C 1,000 mg tablet RxNorm: 368681 1 Tablet(s) Oral QD 2019 No Stop Date Active multivitamin tablet RxNorm: 1 Tablet(s) Oral QD 11/16/2019 No Stop D ate Active aspirin 81 mg tablet,delayed release RxNorm: 906320 1 Tablet(s) Oral QD 11/16/2019 No Stop Date Active Vitamin B12 1000mcg Tablet RxNorm: 1 Tablet(s) Oral QD 11/16/2019 02/14/2020 Inactive rosuvastatin 5 mg tablet RxNorm: 156585 1 Tablet(s) Oral every night at bedtime 11/16/2019 02/14/2020 Inactive Tylenol Arthritis Pain 650 mg tablet,extended release RxNorm : 6290091 3 Tablet(s) Oral QD 11/16/2019 No Stop Date Active tamsulosin 0.4 mg capsule RxNorm: 460269 1 Capsule(s) Oral QPM before supper 11/16/2019 No Stop Date Active Coumadin 10 mg tablet RxNorm: 396726 1 Tablet(s) Oral M on, , Thu, , Sat & Sun then 10.5mg on Thu11/16/2019 11/15/2019 Inactive gabapentin 100 mg capsule RxNorm: 017202 2 Capsule(s) O ral QAM and 3 [...] 1: 124/82 Code: 8480-6 BMI: 30.8 Code: 45712-3 Heart Rate 1: 76 bpm Height: 5'11" [...] E11.40] Diagnosis: Essential hypertension[ICD10: I10] Carolynn KIRAN [employer] CPT-4: 55879 02/14/2020 OFFICE/OUTPATIENT VISIT NEW Diagnosis: Diabetic neuropathy[ICD10: E11.40] Diagnosis: H/O aortic valve replacement[ICD10: Z95.2] Diagnosis: Essential hypertension[ICD10: I10] Diagnosis: Mixed hyperlipidemia[ICD10: E78.2] Carolynn GARRISON [employer] CPT-4: 13482 11/14/2019 Plan of Care Planned Activity Notes [...] I10 11/14/2019 App[facility]ment: [facility] Solo [facility]el[facility] [phone] [facility] [facility] 11/14/2019 Instructions No Instructions Medical Equipment No Medical Equipment data Health Concerns Section Health Concerns data not found Goals Section Goals data not found Interventions Section Interventions data not found Health Status Evaluations/Outcomes Section Health Status Evaluations/Outcomes data not found Advance Directives No Advance Directive data
--- OUTSIDE RECORDS SUMMARY | 2020-03-31 18:13 | XMS REPORT | CCD ---
Author Author Dionisio Solo D.O. Organization [facility] Address [address] [place] [address] Phone Care Team Providers Care Apparel Rental Clerk Name Role Phone PP Unavailable CCM Unavailable Summary Purpose Interface Exchange Insurance Providers Payer name Policy type / Coverage type Covered republican ID Effective Begin Date Effective End Date WPS MEDICARE PART B [place] Blue Cross/Blue Shield [id number] 2019 216 Unknown Blue Cross Blue Shield Blue Cross/Blue Shield [id number] 2019 Unknown Family History Family History data [...] Fill Instructions gabapentin 100 mg capsule RxNorm: 744567 2 Capsule(s) O ral QAM and 3 capsules in the evening 11/24/2019 05/22/2020 Active gabapentin 100 mg capsule RxNorm: 726761 2 Capsule(s) O ral QAM and 3 capsules in the evening 11/24/2019 11/23/2019 Inactive clonidine HCl 0.2 mg tablet RxNorm: 555049 2 Tablet(s) Oral QD 10/29 No Stop Date Active meloxicam 15 mg tablet RxNorm: 892915 1 Tablet(s) Oral QD 0 No Stop Date Active telmisartan 80 mg-hydrochlorothiazide 25 mg tablet RxNorm: 4 56922 1 Tablet(s) Oral QAM 11/16/2019 02/14/2020 Inactive glipizide 10 mg tablet RxNorm: 564911 1 Tablet(s) Oral QD 11/16/2019 02/14/2020 Inactive citalopram 10 mg tablet RxNorm: 937085 1 Tablet(s) Oral QD 11/16/19 No Stop Date Active metformin 500 mg tablet RxNorm: 122378 2 Tablet(s) Oral QD 11/16/19 20 02/14/2020 Inactive finasteride 5 mg tablet RxNorm: 855983 1 Tablet(s) Oral QD 11/16/19 No Stop Date Active amlodipine 10 mg tablet RxNorm: 764478 1 Tablet(s) Oral QD 11/16/19 20 02/14/2020 Inactive Coumadin 10 mg tablet RxNorm: 349399 1 Tablet(s) Oral M on, , Thu, ,Sat, and Sun then 10.5mg on Thu11/16/2019 11/16/2019 Inactive Fish Oil 120 mg-180 mg-60 mg-1,200 mg capsule,delayed releas e RxNorm: 2 Capsule(s) Oral QD 11/16/2019 No Stop Date Active Calcium 600 + D(3) 600 mg (1,500 mg)-200 unit tablet RxNorm: 467939 1 Tablet(s) Oral QD 11/16/2019 No Stop Date Active allopurinol 100 mg tablet RxNorm: 344357 1 Tablet(s) Oral QD 201902/14/2020 Inactive hydralazine 10 mg tablet RxNorm: 344737 2 Tablet(s) Oral QD 020 02/14/2020 Inactive vitamin E 1,000 unit capsule RxNorm: 832160 1 Capsule(s) Oral QD No Stop Date Active metoprolol succinate ER 50 mg tablet,extended release 24 hr RxNorm: 610702 1 Tablet(s) Oral QD 11/16/2019 No Stop Date Active Vitamin C 1,000 mg tablet RxNorm: 873924 1 Tablet(s) Oral QD 2019 No Stop Date Active multivitamin tablet RxNorm: 1 Tablet(s) Oral QD 11/16/2019 No Stop D ate Active aspirin 81 mg tablet,delayed release RxNorm: 630957 1 Tablet(s) Oral QD 11/16/2019 No Stop Date Active Vitamin B12 1000mcg Tablet RxNorm: 1 Tablet(s) Oral QD 11/16/2019 02/14/2020 Inactive rosuvastatin 5 mg tablet RxNorm: 957606 1 Tablet(s) Oral every night at bedtime 11/16/2019 02/14/2020 Inactive Tylenol Arthritis Pain 650 mg tablet,extended release RxNorm : 0022827 3 Tablet(s) Oral QD 11/16/2019 No Stop Date Active tamsulosin 0.4 mg capsule RxNorm: 538626 1 Capsule(s) Oral QPM before supper 11/16/2019 No Stop Date Active Coumadin 10 mg tablet RxNorm: 460749 1 Tablet(s) Oral M on, , Thu, , Sat & Sun then 10.5mg on Thu11/16/2019 11/15/2019 Inactive gabapentin 100 mg capsule RxNorm: 712452 2 Capsule(s) O ral QAM and 3 [...] 1: 124/82 Code: 8480-6 BMI: 30.8 Code: 76679-7 Heart Rate 1: 76 bpm Height: 5'11" [...] E11.40] Diagnosis: Essential hypertension[ICD10: I10] Carolynn KIRAN [employer] CPT-4: 51549 02/14/2020 OFFICE/OUTPATIENT VISIT NEW Diagnosis: Diabetic neuropathy[ICD10: E11.40] Diagnosis: H/O aortic valve replacement[ICD10: Z95.2] Diagnosis: Essential hypertension[ICD10: I10] Diagnosis: Mixed hyperlipidemia[ICD10: E78.2] Carolynn GARRISON [employer] CPT-4: 73142 11/14/2019 Plan of Care Planned Activity Notes [...] I10 11/14/2019 Appointment: Carolynn Solo [facility] [phone] [id number] [facility] 11/14/2019 Instructions No Instructions Medical Equipment No Medical Equipment data Health Concerns Section Health Concerns data not found Goals Section Goals data not found Interventions Section Interventions data not found Health Status Evaluations/Outcomes Section Health Status Evaluations/Outcomes data not found Advance Directives No Advance Directive data
--- OUTSIDE RECORDS SUMMARY | 2020-03-31 18:13 | XMS REPORT | CCD ---
Author Author Dionisio Solo D.O. Organization CAROLYNN SOLO DO [facility] Address [address] [place] [address] Phone Care Team Providers Care Coin Teller Name Role Phone PP Unavailable CCM Unavailable Summary Purpose Interface Exchange Insurance Providers Payer name Policy type / Coverage type Covered democrat ID Effective Begin Date Effective End Date Blue Cross Blue Shield Blue Cross/Blue Shield [id number] 2019 Unknown Family History Family History data [...] Fill Instructions gabapentin 100 mg capsule RxNorm: 465608 2 Capsule(s) O ral QAM and 3 capsules in the evening 11/24/2019 05/22/2020 Active gabapentin 100 mg capsule RxNorm: 842739 2 Capsule(s) O ral QAM and 3 capsules in the evening 11/24/2019 11/23/2019 Inactive clonidine HCl 0.2 mg tablet RxNorm: 174442 2 Tablet(s) Oral QD 10/29 No Stop Date Active meloxicam 15 mg tablet RxNorm: 967720 1 Tablet(s) Oral QD 0 No Stop Date Active telmisartan 80 mg-hydrochlorothiazide 25 mg tablet RxNorm: 4 37357 1 Tablet(s) Oral QAM 11/16/2019 02/14/2020 Active glipizide 10 mg tablet RxNorm: 482505 1 Tablet(s) Oral QD 11/16/2019 02/14/2020 Active citalopram 10 mg tablet RxNorm: 703157 1 Tablet(s) Oral QD 11/16/19 No Stop Date Active metformin 500 mg tablet RxNorm: 750778 2 Tablet(s) Oral QD 11/16/19 20 02/14/2020 Active finasteride 5 mg tablet RxNorm: 163468 1 Tablet(s) Oral QD 11/16/19 No Stop Date Active amlodipine 10 mg tablet RxNorm: 522679 1 Tablet(s) Oral QD 11/16/19 20 02/14/2020 Active Coumadin 10 mg tablet RxNorm: 871091 1 Tablet(s) Oral M on, , Thu, ,Sat, and Sun then 10.5mg on 11/16/2019 11/16/2019 Inactive Fish Oil 120 mg-180 mg-60 mg-1,200 mg capsule,delayed releas e RxNorm: 2 Capsule(s) Oral QD 11/16/2019 No Stop Date Active Calcium 600 + D(3) 600 mg (1,500 mg)-200 unit tablet RxNorm: 438990 1 Tablet(s) Oral QD 11/16/2019 No Stop Date Active allopurinol 100 mg tablet RxNorm: 530800 1 Tablet(s) Oral QD 201902/14/2020 Active hydralazine 10 mg tablet RxNorm: 666475 2 Tablet(s) Oral QD 020 02/14/2020 Active vitamin E 1,000 unit capsule RxNorm: 466542 1 Capsule(s) Oral QD No Stop Date Active metoprolol succinate ER 50 mg tablet,extended release 24 hr RxNorm: 422860 1 Tablet(s) Oral QD 11/16/2019 No Stop Date Active Vitamin C 1,000 mg tablet RxNorm: 765698 1 Tablet(s) Oral QD 2019 No Stop Date Active multivitamin tablet RxNorm: 1 Tablet(s) Oral QD 11/16/2019 No Stop D ate Active aspirin 81 mg tablet,delayed release RxNorm: 479429 1 Tablet(s) Oral QD 11/16/2019 No Stop Date Active Vitamin B12 1000mcg Tablet RxNorm: 1 Tablet(s) Oral QD 11/16/2019 02/14/2020 Active rosuvastatin 5 mg tablet RxNorm: 456818 1 Tablet(s) Oral every night at bedtime 11/16/2019 02/14/2020 Active Tylenol Arthritis Pain 650 mg tablet,extended release RxNorm : 4207162 3 Tablet(s) Oral QD 11/16/2019 No Stop Date Active tamsulosin 0.4 mg capsule RxNorm: 919797 1 Capsule(s) Oral QPM before supper 11/16/2019 No Stop Date Active Coumadin 10 mg tablet RxNorm: 305457 1 Tablet(s) Oral M on, , Thu, , Sat & Sun then 10.5mg on Thu11/16/2019 11/15/2019 Inactive gabapentin 100 mg capsule RxNorm: 645090 2 Capsule(s) O ral QAM and 3 capsules in the evening 11/16/2019 11/23/2019 Inactive Medication Administered No Medication Administered data Immunizations No Immunization data Results No Results data Procedures No Procedures data Vital Signs Date Vital 11/14/2019 Blood Pressure 1: 124/82 Code: 8480-6 BMI: 30.8 Code: 53561-2 Heart Rate 1: 76 bpm Height: 5'11" Respiratory Rate: 20 bpm SpO2: 98% Tempera ture: 36.8 (C) / 98.2 (F) Weight: 221 lbs Functional Status No Functional Status data Reason For Visit Reason For Visit Effective Dates Notes ~generic 11/14/2019 New Patient--nael hernandez visit Encounters Encounter Performer Location Codes Date OFFICE/OUTPATIENT VISIT NEW Diagnosis: Diabetic neuropathy[ICD10: E11.40] Diagnosis: H/O aortic valve replacement[ICD10: Z95.2] Diagnosis: Essential hypertension[ICD10: I10] Diagnosis: Mixed hyperlipidemia[ICD10: E78.2] Carolynn SOLO DO [facility]-4: [id number] 11/14/2019 Plan of Care Planned Activity Notes [...] E78.2 11/14/2019 Appointment: [facility] [phone] [id number] NEW [facility]IENT 11/14/2019 Instructions No Instructions Medical Equipment No Medical Equipment data Health Concerns Section Health Concerns data not found Goals Section Goals data not found Interventions Section Interventions data not found Health Status Evaluations/Outcomes Section Health Status Evaluations/Outcomes data not found Advance Directives No Advance Directive data
--- OUTSIDE RECORDS SUMMARY | 2020-03-31 18:14 | XMS REPORT | Continuity of Care Document ---
Author Organization Unknown Address Unknown Phone Unavailable Allergies Active Description Code Type Severity Reaction Onset Reported/Identified Relationship to Patient Clinical Status Yes carvedilol [id number] Drug Allerg y Mild RASH 10/19/2009 Medications There is no data. 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 12/01/2009 Ot V58.61 ANTICOAGULANTS,LT,CURRENT USE 07/08/2012 Ot 250.00 NAYA B NICOLAS WO COMPL, TYPE II OR UNSPEC TY 07/08/2012 Ot 272.4 HYPE RLIPIDEMIA NEC/NOS 07/08/2012 Ot 274.00 GOU TY ARTHROPATHY, UNSPECIFIED 07/08/2012 Ot 401.9 HYPE RTENSION NOS 07/08/2012 Ot 414.01 COR ONARY ATHEROSCLEROSIS OF [place] CORON 07/08/2012 Ot 433.10 CAR OTID ARTERY OCCLUSION W O CEREBRAL IN 07/08/2012 Ot 794.30 ABN CARDIOVASC STUDY NOS 07/08/2012 Ot 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 07/08/2012 Ot V58.61 ANTICOAGULANTS,LT,CURRENT USE 07/08/2012 Ot V58.66 MELCHOR G-TERM (CURRENT) USE OF ASPIRIN 07/08/2012 Ot V58.69 OTH MED,LT,CURRENT USE 11/17/2012 Ot 427.9 CARD IAC DYSRHYTHMIA NOS 07/15/2014 GIULIANO ESPINOZA MD Ot 873.64 OPN WND TONGUE/MOUTH FLR 07/15/2014 YUROK MD, GIULIANO D Ot E000.8 OTHER EXTERNAL CAUSE STATUS 07/15/2014 GIULIANO ESPINOZA MD Ot E849.0 ACCIDENT IN HOME 07/15/2014 GIULIANO ESPINOZA MD Ot E928.3 INJURY CAUSED BY HUMAN BITE 07/15/2014 OLGA WOLF, GIULIANO Lundberg Ot V58.61 ANTICOAGULANTS,LT,CURRENT USE 10/24/2014 Ot 840.4 10/24/2014 Ot E000.8 10/24/2014 Ot E030 10/24/2014 Ot E849.0 10/24/2014 Ot E888.9 10/24/2014 Ot V72.63 10/24/2014 Ot V72.81 10/24/2014 Ot V74.8 10/24/2014 Ot 719.01 10/24/2014 Ot V45.89 10/24/2014 Ot V72.83 10/24/2014 Ot 571.8 10/24/2014 Ot 721.3 10/24/2014 Ot 401.9 10/24/2014 Ot 424.0 10/24/2014 Ot 401.9 10/24/2014 Ot 414.00 10/24/2014 Ot 786.05 10/24/2014 Ot V43.3 10/24/2014 Ot 401.9 10/24/2014 Ot 414.00 10/24/2014 Ot 786.05 10/24/2014 Ot V43.3 10/24/2014 Ot 571.8 10/24/2014 Ot 789.1 10/24/2014 Ot 789.2 10/24/2014 Ot 790.4 11/16/2014 CURTIS COLE MD Ot 272. 4 11/16/2014 CURTIS COLE MD Ot 401. 9 11/16/2014 CURTIS COLE MD Ot 414. 00 11/16/2014 CURTIS COLE MD Ot 433. 10 11/16/2014 CURTIS COLE MD Ot 272. 4 11/16/2014 CURTIS COLE MD Ot 401. 9 11/16/2014 CURTIS COLE MD Ot 414. 00 11/16/2014 CURTIS COLE MD Ot 433. 10 01/12/2015 CURTIS COLE MD Ot 272. 4 01/12/2015 CURTIS COLE MD Ot 401. 9 01/12/2015 CURTIS COLE MD Ot 414. 00 01/12/2015 DOUGLAS WOLF, CURTIS Gibson Ot 433. 10 01/12/2015 DOUGLAS WOLF, CURTIS Gibson Ot 272. 4 01/12/2015 DOUGLAS WOLF, CURTIS J Ot 401. 9 01/12/2015 DOUGLAS WOLF, CURTIS J Ot 414. 00 01/12/2015 DOUGLAS WOLF, CURTIS J Ot 433. 10 01/12/2015 DOUGLAS WOLF, CURTIS Gibson Ot 272. 4 01/12/2015 DOUGLAS WOLF, CURTIS Gibson Ot 401. 9 01/12/2015 DOUGLAS WOLF, CURTIS Gbison Ot 414. 00 01/12/2015 DOUGLAS WOLF, CURTIS Gibson Ot 433. 10 01/12/2015 DOUGLAS WOLF, CURTIS Gibson Ot 272. 4 01/12/2015 DOUGLAS WOLF, CURTIS Gibson Ot 401. 9 01/12/2015 DOUGLAS WOLF, CURTIS Gibson Ot 414. 00 01/12/2015 DOUGLAS WOLF, CURTIS Gibson Ot 433. 10 02/01/2015 MARTIN WOLF, JESSICA R Ot 723. 1 02/01/2015 MARTIN WOLF, JESSICA R Ot 784. 0 02/01/2015 MARTIN WOLF, JESSICA R Ot 723. 1 02/01/2015 MARTIN WOLF, JESSICA R Ot 784. 0 02/01/2015 MARTIN WOLF, JESSICA R Ot 723. 1 02/01/2015 MARTIN WOLF, JESSICA R Ot 784. 0 02/24/2015 MARTIN WOLF, JESSICA R Ot 723. 1 02/24/2015 MARTIN WOLF, JESSICA R Ot 784. 0 03/16/2015 MARTIN WOLF, JESSICA R Ot 723. 1 03/16/2015 MARTIN WOLF, JESSICA R Ot 784. 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 4 01/01/2016 DOUGLAS WOLF, CURTIS J Ot 401. 9 01/01/2016 DOUGLAS WOLF, CURTIS J Ot 414. 00 01/01/2016 DOUGLAS WOLF, CURTIS Gibson Ot 433. 10 01/01/2016 DOUGLAS WOLF, CURTIS Gibson Ot 272. 4 01/01/2016 DOUGLAS WOLF, CURTIS J Ot 401. 9 01/01/2016 DOUGLAS WOLF, CURTIS J Ot 414. 00 01/01/2016 DOUGLAS WOLF, CURTIS Gibson Ot 433. 10 01/01/2016 MARTIN WOLF, JESSICA R Ot 723. 1 01/01/2016 MARTIN WOLF, JESSICA R Ot 784. 0 01/01/2016 MARTIN WOLF, JESSICA R Ot 723. 1 01/01/2016 MARTIN WOLF, JESSICA R Ot 784. 0 01/01/2016 Ot 571.8 01/01/2016 Ot 721.3 01/01/2016 Ot 401.9 01/01/2016 Ot 424.0 01/01/2016 Ot 401.9 01/01/2016 Ot 414.00 01/01/2016 Ot 786.05 01/01/2016 Ot V43.3 01/01/2016 Ot 401.9 01/01/2016 Ot 414.00 01/01/2016 Ot 786.05 01/01/2016 Ot V43.3 01/01/2016 Ot 571.8 01/01/2016 Ot 789.1 01/01/2016 Ot 789.2 01/01/2016 Ot 790.4 01/01/2016 DOUGLAS WOLF, CURTIS Gibson Ot 272. 4 01/01/2016 DOUGLAS WOLF, CURTIS Gibson Ot 401. 9 01/01/2016 DOUGLAS WOLF, CURTIS Gibson Ot 414. 00 01/01/2016 DOUGLAS WOLF, CURTIS Gibson Ot 433. 10 01/01/2016 DOUGLAS WOLF, CURTIS Gibson Ot 272. 4 01/01/2016 DOUGLAS WOLF, CURTIS Gibson Ot 401. 9 01/01/2016 DOUGLAS WOLF, CURTIS Gibson Ot 414. 00 01/01/2016 DOUGLAS WOLF, CURTIS Gibson Ot 433. 10 01/01/2016 MARTIN WOLF, JESSICA R Ot 723. 1 01/01/2016 MARTIN WOLF, JESSICA R Ot 784. 0 01/01/2016 MARTIN WOLF, JESSICA R Ot 723. 1 01/01/2016 MARTIN WOLF, JESSICA R Ot 784. 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 4 HYPERLIPIDEMIA NEC/NOS 01/24/2016 CURTIS COLE MD Ot 401. 9 HYPERTENSION NOS 01/24/2016 CURTIS COLE MD Ot 414. 00 CORON ATHEROSCLER NOS TYPE VESSEL, NATIV 01/24/2016 CURTIS COLE MD Ot 433. 10 CAROTID ARTERY OCCLUSION W O CEREBRAL IN 01/24/2016 CURTIS COLE MD Ot 272. 4 HYPERLIPIDEMIA NEC/NOS 01/24/2016 CURTIS COLE MD Ot 401. 9 HYPERTENSION NOS 01/24/2016 CURTIS COLE MD Ot 414. 00 CORON ATHEROSCLER NOS TYPE VESSEL, NATIV 01/24/2016 CURTIS COLE MD Ot 433. 10 CAROTID ARTERY OCCLUSION W O CEREBRAL IN 01/24/2016 MARTIN WOLF, JESSICA R Ot 723. 1 CERVICALGIA 01/24/2016 MARTIN WOLF, JESSICA R Ot 784. 0 HEADACHE 01/24/2016 MARTIN WOLF, JESSICA R Ot 723. 1 CERVICALGIA 01/24/2016 MARTIN WOLF, JESSICA R Ot 784. 0 HEADACHE 01/25/2016 CURTIS COLE MD Ot E78. 2 MIXED HYPERLIPIDEMIA 01/25/2016 CURTIS COLE MD Ot I10 ESSENTIAL (PRIMARY) HYPERTENSION 01/25/2016 CURTIS COLE MD Ot I25. 10 ATHSCL HEART DISEASE OF [place] CORONARY 01/25/2016 CURTIS COLE MD Ot I65. 23 OCCLUSION AND STENOSIS OF BILATERAL TIM 01/25/2016 CURTIS COLE MD Ot E78. 2 MIXED HYPERLIPIDEMIA 01/25/2016 CURTIS COLE MD Ot I10 ESSENTIAL (PRIMARY) HYPERTENSION 01/25/2016 CURTIS COLE MD Ot I25. 10 ATHSCL HEART DISEASE OF [place] CORONARY 01/25/2016 CURTIS COLE MD Ot I65. 23 OCCLUSION AND STENOSIS OF BILATERAL TIM 02/14/2016 CURTIS COLE MD Ot E78. 2 MIXED HYPERLIPIDEMIA 02/14/2016 CURTIS COLE MD Ot I10 ESSENTIAL (PRIMARY) HYPERTENSION 02/14/2016 CURTIS COLE MD Ot I25. 10 ATHSCL HEART DISEASE OF [place] CORONARY 02/14/2016 CURTIS COLE MD Ot I65. 23 OCCLUSION AND STENOSIS OF BILATERAL TIM 02/22/2016 CURTIS COLE MD Ot E78. 2 MIXED HYPERLIPIDEMIA 02/22/2016 CURTIS COLE MD Ot I10 ESSENTIAL (PRIMARY) HYPERTENSION 02/22/2016 CURTIS COLE MD Ot I25. 10 ATHSCL HEART DISEASE OF [place] CORONARY 02/22/2016 CURTIS COLE MD Ot I65. 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 4 HYPERLIPIDEMIA NEC/NOS 01/22/2017 CURTIS COLE MD Ot 401. 9 HYPERTENSION NOS 01/22/2017 CURTIS COLE MD Ot 414. 00 CORON ATHEROSCLER NOS TYPE VESSEL, NATIV 01/22/2017 CURTIS COLE MD Ot 433. 10 CAROTID ARTERY OCCLUSION W O CEREBRAL IN 01/22/2017 CURTIS COLE MD Ot 272. 4 HYPERLIPIDEMIA NEC/NOS 01/22/2017 CURTIS COLE MD Ot 401. 9 HYPERTENSION NOS 01/22/2017 CURTIS COLE MD Ot 414. 00 CORON ATHEROSCLER NOS TYPE VESSEL, NATIV 01/22/2017 CURTIS COLE MD Ot 433. 10 CAROTID ARTERY OCCLUSION W O CEREBRAL IN 01/22/2017 JESSICA SALAZAR MD R Ot 723. 1 CERVICALGIA 01/22/2017 MARTIN WOLF, JESSICA R Ot 784. 0 HEADACHE 01/22/2017 JESSICA SALAZAR MD R Ot 723. 1 CERVICALGIA 01/22/2017 JESSICA SALAZAR MD R Ot 784. 0 HEADACHE 01/22/2017 CURTIS COLE MD Ot E78. 2 MIXED HYPERLIPIDEMIA 01/22/2017 CURTIS COLE MD Ot I10 ESSENTIAL (PRIMARY) HYPERTENSION 01/22/2017 CURTIS COLE MD Ot I25. 10 ATHSCL HEART DISEASE OF [place] CORONARY 01/22/2017 CURTIS COLE MD Ot I65. 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 4 HYPERLIPIDEMIA NEC/NOS 01/26/2017 CURTIS COLE MD Ot 401. 9 HYPERTENSION NOS 01/26/2017 CURTIS COLE MD Ot 414. 00 CORON ATHEROSCLER NOS TYPE VESSEL, NATIV 01/26/2017 CURTIS COLE MD Ot 433. 10 CAROTID ARTERY OCCLUSION W O CEREBRAL IN 01/26/2017 CURTIS COLE MD Ot 272. 4 HYPERLIPIDEMIA NEC/NOS 01/26/2017 CURTIS COLE MD Ot 401. 9 HYPERTENSION NOS 01/26/2017 CURTIS COLE MD Ot 414. 00 CORON ATHEROSCLER NOS TYPE VESSEL, NATIV 01/26/2017 CURTIS COLE MD Ot 433. 10 CAROTID ARTERY OCCLUSION W O CEREBRAL IN 01/26/2017 MARTIN WOLF, JESSICA R Ot 723. 1 CERVICALGIA 01/26/2017 MARTIN WOLF, JESSICA R Ot 784. 0 HEADACHE 01/26/2017 JESSICA SALAZAR MD R Ot 723. 1 CERVICALGIA 01/26/2017 JESSICA SALAZAR MD R Ot 784. 0 HEADACHE 01/26/2017 CURTIS COLE MD Ot E78. 2 MIXED HYPERLIPIDEMIA 01/26/2017 CURTIS COLE MD Ot I10 ESSENTIAL (PRIMARY) HYPERTENSION 01/26/2017 CURTIS COLE MD Ot I25. 10 ATHSCL HEART DISEASE OF [place] CORONARY 01/26/2017 CURTIS COLE MD Ot I65. 23 OCCLUSION AND STENOSIS OF BILATERAL TIM 01/27/2017 CURTIS COLE MD Ot E11. 9 TYPE 2 DIABETES MELLITUS WITHOUT COMPLIC 01/27/2017 CURTIS COLE MD Ot E78. 2 MIXED HYPERLIPIDEMIA 01/27/2017 CURTIS COLE MD Ot I10 ESSENTIAL (PRIMARY) HYPERTENSION 01/27/2017 CURTIS COLE MD Ot I25. 10 ATHSCL HEART DISEASE OF [place] CORONARY 01/27/2017 CURTIS COLE MD Ot I65. 23 OCCLUSION AND STENOSIS OF BILATERAL TIM 02/18/2017 CURTIS COLE MD Ot E11. 9 TYPE 2 DIABETES MELLITUS WITHOUT COMPLIC 02/18/2017 CURTIS COLE MD Ot E78. 2 MIXED HYPERLIPIDEMIA 02/18/2017 CURTIS COLE MD Ot I10 ESSENTIAL (PRIMARY) HYPERTENSION 02/18/2017 CURTIS COLE MD Ot I25. 10 ATHSCL HEART DISEASE OF [place] CORONARY 02/18/2017 CURTIS COLE MD Ot I65. 23 OCCLUSION AND STENOSIS OF BILATERAL TIM 02/25/2017 CURTIS COLE MD Ot E11. 9 TYPE 2 DIABETES MELLITUS WITHOUT COMPLIC 02/25/2017 CURTIS COLE MD Ot E78. 2 MIXED HYPERLIPIDEMIA 02/25/2017 CURTIS COLE MD Ot I10 ESSENTIAL (PRIMARY) HYPERTENSION 02/25/2017 CURTIS COLE MD Ot I25. 10 ATHSCL HEART DISEASE OF [place] CORONARY 02/25/2017 CURTIS COLE MD Ot I65. 23 OCCLUSION AND STENOSIS OF BILATERAL TIM 06/12/2017 CURTIS COLE MD Ot E11. 9 TYPE 2 DIABETES MELLITUS WITHOUT COMPLIC 06/12/2017 CURTIS COLE MD Ot E78. 2 MIXED HYPERLIPIDEMIA 06/12/2017 CURTIS COLE MD Ot I10 ESSENTIAL (PRIMARY) HYPERTENSION 06/12/2017 CURTIS COLE MD Ot I25. 10 ATHSCL HEART DISEASE OF [place] CORONARY 06/12/2017 CURTIS COLE MD Ot I65. 23 OCCLUSION AND STENOSIS OF BILATERAL TIM 06/18/2017 CURTIS COLE MD Ot E11. 9 TYPE 2 DIABETES MELLITUS WITHOUT COMPLIC 06/18/2017 CURTIS COLE MD Ot E78. 2 MIXED HYPERLIPIDEMIA 06/18/2017 CURTIS COLE MD Ot I10 ESSENTIAL (PRIMARY) HYPERTENSION 06/18/2017 CURTIS COLE MD Ot I25. 10 ATHSCL HEART DISEASE OF [place] CORONARY 06/18/2017 CURTIS COLE MD Ot I65. 23 OCCLUSION AND STENOSIS OF BILATERAL TIM 09/14/2018 CURTIS COLE MD Ot 272. 4 HYPERLIPIDEMIA NEC/NOS 09/14/2018 CURTIS COLE MD Ot 401. 9 HYPERTENSION NOS 09/14/2018 CURTIS COLE MD Ot 414. 00 CORON ATHEROSCLER NOS TYPE VESSEL, NATIV 09/14/2018 CURTIS COLE MD Ot 433. 10 CAROTID ARTERY OCCLUSION W O CEREBRAL IN 09/14/2018 CURTIS COLE MD Ot 272. 4 HYPERLIPIDEMIA NEC/NOS 09/14/2018 CURTIS COLE MD Ot 401. 9 HYPERTENSION NOS 09/14/2018 CURTIS COLE MD Ot 414. 00 CORON ATHEROSCLER NOS TYPE VESSEL, NATIV 09/14/2018 CURTIS COLE MD Ot 433. 10 CAROTID ARTERY OCCLUSION W O CEREBRAL IN 09/14/2018 JESSICA SALAZAR MD R Ot 723. 1 CERVICALGIA 09/14/2018 MARTIN WOLF JESSICA R Ot 784. 0 HEADACHE 09/14/2018 JESSICA SALAZAR MD R Ot 723. 1 CERVICALGIA 09/14/2018 MARTIN WOLF, JESSICA R Ot 784. 0 HEADACHE 09/14/2018 CURTIS COLE MD Ot E78. 2 MIXED HYPERLIPIDEMIA 09/14/2018 CURTIS COLE MD Ot I10 ESSENTIAL (PRIMARY) HYPERTENSION 09/14/2018 CURTIS COLE MD Ot I25. 10 ATHSCL HEART DISEASE OF [place] CORONARY 09/14/2018 CURTIS COLE MD Ot I65. 23 OCCLUSION AND STENOSIS OF BILATERAL TIM 09/14/2018 CURTIS COLE MD Ot E11. 9 TYPE 2 DIABETES MELLITUS WITHOUT COMPLIC 09/14/2018 CURTIS COLE MD Ot E78. 2 MIXED HYPERLIPIDEMIA 09/14/2018 CURTIS COLE MD Ot I10 ESSENTIAL (PRIMARY) HYPERTENSION 09/14/2018 CURTIS COLE MD Ot I25. 10 ATHSCL HEART DISEASE OF [place] CORONARY 09/14/2018 CURTIS COLE MD Ot I65. 23 OCCLUSION AND STENOSIS OF BILATERAL TIM 09/14/2018 CURTIS COLE MD Ot E11. 9 TYPE 2 DIABETES MELLITUS WITHOUT COMPLIC 09/14/2018 CURTIS COLE MD Ot E78. 2 MIXED HYPERLIPIDEMIA 09/14/2018 CURTIS COLE MD Ot I10 ESSENTIAL (PRIMARY) HYPERTENSION 09/14/2018 CURTIS COLE MD Ot I25. 10 ATHSCL HEART DISEASE OF [place] CORONARY 09/14/2018 CURTIS COLE MD Ot I65. 23 OCCLUSION AND STENOSIS OF BILATERAL TIM 09/14/2018 CURTIS COLE MD Ot E11. 9 TYPE 2 DIABETES MELLITUS WITHOUT COMPLIC 09/14/2018 CURTIS COLE MD Ot E78. 2 MIXED HYPERLIPIDEMIA 09/14/2018 CURTIS COLE MD Ot I10 ESSENTIAL (PRIMARY) HYPERTENSION 09/14/2018 CURTIS COLE MD Ot I25. 10 ATHSCL HEART DISEASE OF [place] CORONARY 09/14/2018 CURTIS COLE MD Ot I65. 23 OCCLUSION AND STENOSIS OF BILATERAL TIM 09/14/2018 CURTIS COLE MD Ot 272. 4 HYPERLIPIDEMIA NEC/NOS 09/14/2018 CURTIS COLE MD Ot 401. 9 HYPERTENSION NOS 09/14/2018 CURTIS COLE MD Ot 414. 00 CORON ATHEROSCLER NOS TYPE VESSEL, NATIV 09/14/2018 CURTIS COLE MD Ot 433. 10 CAROTID ARTERY OCCLUSION W O CEREBRAL IN 09/14/2018 CURTIS COLE MD Ot 272. 4 HYPERLIPIDEMIA NEC/NOS 09/14/2018 CURTIS COLE MD Ot 401. 9 HYPERTENSION NOS 09/14/2018 CURTIS COLE MD Ot 414. 00 CORON ATHEROSCLER NOS TYPE VESSEL, NATIV 09/14/2018 CURTIS COLE MD Ot 433. 10 CAROTID ARTERY OCCLUSION W O CEREBRAL IN 09/14/2018 MARTIN WOLF, JESSICA R Ot 723. 1 CERVICALGIA 09/14/2018 MARTIN WOLF, JESSICA R Ot 784. 0 HEADACHE 09/14/2018 MARTIN WOLF, JESSICA R Ot 723. 1 CERVICALGIA 09/14/2018 MARTIN WOLF, JESSICA R Ot 784. 0 HEADACHE 09/14/2018 CURTIS COLE MD Ot E78. 2 MIXED HYPERLIPIDEMIA 09/14/2018 CURTIS COLE MD Ot I10 ESSENTIAL (PRIMARY) HYPERTENSION 09/14/2018 CURTIS COLE MD Ot I25. 10 ATHSCL HEART DISEASE OF [place] CORONARY 09/14/2018 CURTIS COLE MD Ot I65. 23 OCCLUSION AND STENOSIS OF BILATERAL TIM 09/14/2018 CURTIS COLE MD Ot E11. 9 TYPE 2 DIABETES MELLITUS WITHOUT COMPLIC 09/14/2018 CURTIS COLE MD Ot E78. 2 MIXED HYPERLIPIDEMIA 09/14/2018 CURTIS COLE MD Ot I10 ESSENTIAL (PRIMARY) HYPERTENSION 09/14/2018 CURTIS COLE MD Ot I25. 10 ATHSCL HEART DISEASE OF [place] CORONARY 09/14/2018 CURTIS COLE MD Ot I65. 23 OCCLUSION AND STENOSIS OF BILATERAL TIM 09/14/2018 CURTIS COLE MD Ot E11. 9 TYPE 2 DIABETES MELLITUS WITHOUT COMPLIC 09/14/2018 CURTIS COLE MD Ot E78. 2 MIXED HYPERLIPIDEMIA 09/14/2018 CURTIS COLE MD Ot I10 ESSENTIAL (PRIMARY) HYPERTENSION 09/14/2018 CURTIS COLE MD Ot I25. 10 ATHSCL HEART DISEASE OF [place] CORONARY 09/14/2018 CURTIS COLE MD Ot I65. 23 OCCLUSION AND STENOSIS OF BILATERAL TIM 09/14/2018 CURTIS COLE MD Ot E11. 9 TYPE 2 DIABETES MELLITUS WITHOUT COMPLIC 09/14/2018 CURTIS COLE MD Ot E78. 2 MIXED HYPERLIPIDEMIA 09/14/2018 DOUGLAS MD, BASHAR J Ot I10 ESSENTIAL (PRIMARY) HYPERTENSION 09/14/2018 CURTIS COLE MD Ot I25. 10 ATHSCL HEART DISEASE OF [place] CORONARY 09/14/2018 CURTIS COLE MD Ot I65. 23 OCCLUSION AND STENOSIS OF BILATERAL TIM 09/20/2018 CURTIS COLE MD Ot E11. 9 TYPE 2 DIABETES MELLITUS WITHOUT COMPLIC 09/20/2018 CURTIS COLE MD Ot E78. 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 10 ATHSCL HEART DISEASE OF [place] CORONARY 09/20/2018 CURTIS COLE MD Ot I65. 23 OCCLUSION AND STENOSIS OF BILATERAL TIM 09/20/2018 CURTIS COLE MD Ot Z95. 2 PRESENCE OF PROSTHETIC HEART VALVE 10/06/2018 CURTIS COLE MD Ot E11. 9 TYPE 2 DIABETES MELLITUS WITHOUT COMPLIC 10/06/2018 CURTIS COLE MD Ot E78. 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 10 ATHSCL HEART DISEASE OF [place] CORONARY 10/06/2018 CURTIS COLE MD Ot I65. 23 OCCLUSION AND STENOSIS OF BILATERAL TIM 10/06/2018 CURTIS COLE MD Ot Z95. 2 PRESENCE OF PROSTHETIC HEART VALVE 10/14/2018 CURTIS COLE MD Ot E11. 9 TYPE 2 DIABETES MELLITUS WITHOUT COMPLIC 10/14/2018 CURTIS COLE MD Ot E78. 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 10 ATHSCL HEART DISEASE OF [place] CORONARY 10/14/2018 CURTIS COLE MD Ot I65. 23 OCCLUSION AND STENOSIS OF BILATERAL TIM 10/14/2018 CURTIS COLE MD Ot Z95. 2 PRESENCE OF PROSTHETIC HEART VALVE 11/25/2019 W E11.40 Naya betic neuropathy Orender, Ellyn S. 11/25/2019 W E78.2 Mixe d hyperlipidemia Orender, Ellyn S. 11/25/2019 W I10 Essent ial hypertension Orender, Ellyn S. 11/25/2019 W Z95.2 H/O aortic valve replacement Orender, Ellyn S. 02/14/2020 W E11.40 Naya betic neuropathy Orender, Ellyn S. 02/14/2020 W I10 Essent ial hypertension Orender, Ellyn S. 02/14/2020 W E11.40 Naya betic neuropathy Orender, Ellyn S. 02/14/2020 W I10 Essent ial hypertension Orender, Ellyn S. Procedures Code Description Performed By Per formed On 80.21 SHOU KEVINER ARTHROSCOPY 10/24/2009 83.13 OTHE R TENOTOMY 10/24/2009 83.63 ROTA TOR CUFF REPAIR 10/24/2009 86.28 NONE XCIS DEBRID OF WOUND, INFECT, OR BUR 11/28/2009 Results There is no data. Encounters ACCT No. Visit Date/Time Discharge Status Pt. Type Provider Facility Loc./Unit Complaint [id number] 01/12/2020 13:13:00 01/12/2020 23:59 :00 DIS Outpatient Tika Molina [id number] 11/11/2019 10:14:18 11/11/2019 23:59:5 9 CLS Outpatient [id number] 09/14/2018 08:24:00 018 23:59:59 CLS Outpatient CURTIS COLE MD Via [facility] CARD CAD,CAROTID STENOSIS BI L [id number] 05/20/2017 07:44:00 017 23:59:59 CLS Outpatient CURTIS COLE MD [facility] CARD CAD I25.10 [id number] 05/11/2017 07:24:00 017 23:59:59 CLS Outpatient CURTIS COLE MD [facility] CARD I25.10 CAD [id number] 01/26/2017 08:01:00 017 23:59:59 CLS Outpatient CURTIS COLE MD [facility] CARD I25.10,I65.23,E11.9,I10 [id number] 01/24/2016 07:49:00 016 23:59:59 CLS Outpatient CURTIS COLE MD [facility] CARD CAD,HTN,HLP, [id number] 12/01/2015 11:01:00 016 13:22:00 DIS Emergency WILL HUANG, GE [place]ano [facility] ER CONGESTION [id number] 03/25/2015 06:40:00 015 09:57:00 DIS Emergency BARRINGTON WOLF, SIS Cummins [facility] ER SYNCOPE [id number] 01/26/2015 08:13:00 015 23:59:59 CLS Outpatient JESSICA SALAZAR MD [facility] RAD PAIN [id number] 01/19/2015 15:42:00 015 23:59:59 CLS Outpatient JESSICA SALAZAR MD [facility] RAD PAIN, [id number] 10/24/2014 09:33:00 015 23:59:59 CLS Outpatient CURTIS COLE MD [facility] CARD CAD,HTN,HLP [id number] 10/23/2014 07:05:00 015 23:59:59 CLS Outpatient CURTIS COLE MD [facility] CARD CAD,HTN,HLP [id number] 07/15/2014 15:59:00 014 16:45:00 DIS Emergency GIULIANO ESPINOZA MD [facility] ER BIT TONGUE [id number] 10/24/2014 09:34:00 Document Registration [id number] 10/24/2014 09:34:00 Document Registration [id number] 08/19/2012 08:29:00 Document Registration [id number] 07/26/2012 09:24:00 Document Registration [id number] 07/07/2012 10:42:00 Document Registration [id number] 05/19/2012 07:47:00 Document Registration [id number] 05/17/2012 08:22:00 Document Registration [id number] 08/04/2011 09:39:00 Document Registration [id number] 02/18/2011 10:05:00 Document Registration [id number] 11/28/2009 05:56:00 Document Registration [id number] 11/27/2009 15:25:00 Document Registration [id number] 10/19/2009 10:30:00 Document Registration
--- NOTE | 2020-03-31 18:25 | ED Cough/URI ---
General Chief Complaint: Fever-Adult/Adol Stated Complaint: FEVER Nursing Triage Note: PT AMBULATE TO ROOM CL1 WITH C/O COUGH/FEVER. Sepsis Screen: No Definite Risk Source: patient Exam Limitations: no limitations History of Present Illness Date Seen by Provider: Mar 31, 2020 Time Seen by Provider: 18:22 Initial Comments To ER with reports of productive cough since this morning, fever at home believed to be about 102 but not sure, he doesn't know how accurate his thermometer was. He also has some low back pain and upper back pain, bilateral k nee pain. Denies sore throat. All of these symptoms started this morning. Cough is improved with use of Mucinex [id number] Timing/Duration: constant Severity/Quality: productive cough Associated Symptoms: cough, fever/chills Allergies and Home Medications Allergies Coded Allergies: No Known Drug Allergies (Unverified , 03/31/20) Home Medications Allopurinol 300 Mg Tab, 300 MG PO DAILY, (Reported) Aspirin 81 Mg Chew, 81 MG PO DAILY, (Reported) Cefdinir 300 Mg Capsule, 300 MG PO BID Prescribed by: GE SOLIS on 12/01/15 1250 Cefuroxime Axetil 250 Mg Tablet, 250 MG PO BID Prescribed by: MARTHA LOPEZ on 03/31/20 1918 Cholecalciferol (Vitamin D3) 2,000 Unit Capsule, 2,000 UNIT PO DAILY, (Reported) Cyanocobalamin (Vitamin B-12) 1,000 Mcg Tablet.er, 2,000 MCG PO DAILY, (Reported) Glipizide 10 Mg Tablet, 10 MG PO DAILY, (Reported) Losartan/Hydrochlorothiazide 1 Tab Tablet, 1 TAB PO DAILY, (Reported) Metformin Hcl 500 Mg Tablet, 500 MG PO BID, (Reported) with meals resume 07/10/12 with dinner Metoprolol Succinate 25 Mg Tab, 25 MG PO DAILY, (Reported) Multiv,Ca,Iron,Min/Fa/Phytoste 1 Each Tablet, 1 TAB PO BID, (Reported) Naproxen Sodium 220 Mg Capsule, 440 MG PO DAILY, (Reported) [place] 3 Polyunsat Fatty Acids 1,000 Mg Cap, 1,000 MG PO TID, (Reported) Warfarin Sod 10 Mg Tab, 15 MG PO ,,, (Reported) Warfarin Sod 10 Mg Tab, 10 MG PO ,M,Thu,Thu, (Reported) Patient Home Medication List Home Medication List Reviewed: Yes Review of Systems Review of Systems Constitutional: see HPI, chills, fever EENTM: see HPI Respiratory: see HPI, cough; No short of breath Genitourinary: no symptoms reported Musculoskeletal: see HPI, joint pain Skin: no symptoms reported Psychiatric/Neurological: No Symptoms Reported Hematologic/Lymphatic: No Symptoms Reported Past Fwynblw-Mctxev-Segkvs Hx Patient Social History Recent Foreign Travel: No Contact w/Someone Who Travel: No Recent Infectious Disease Expo: No Immunizations Up To Date Date of Influenza Vaccine: Jun 28, 2015 Seasonal Allergies Seasonal Allergies: No Past Medical History Appendectomy Hypertension Reproductive Disorders: No Family Medical History No Pertinent Family Hx Physical Exam Vital Signs - First Documented 03/31/20 18:19 Temp 37.7 Pulse 112 Resp 18 B/P (MAP) 183/93 (123) O2 Delivery Room Air Capillary Refill : Less Than 3 Seconds Height: 6'0" Weight: 212lbs. oz. 96.976618gd; 30.00 BMI Method:Stated General Appearance: WD/WN, no apparent distress, other (no distress, little tachycardic, rate of 110. Hypertensive, 180s over 90s. Oxygen saturation 95-97% room air. Former smoker quit 30 years ago. No known lung disease.) Eyes: Bilateral Eye Normal Inspection, Bilateral Eye PERRL, Bilateral Eye EOMI HEENT: PERRL/EOMI, normal ENT inspection Respiratory: normal breath sounds, no respiratory distress, no accessory muscle use Cardiovascular: no murmur, tachycardia Gastrointestinal: normal bowel sounds, non tender, soft Neurologic/Psychiatric: alert, normal mood/affect, oriented x 3 Skin: normal color, warm/dry Progress/Results/Core Measures Suspected Sepsis Recent Fever Within 48 Hours: No Infection Criteria Present: None New/Unexplained Altered Menta: No Sepsis Screen: No Definite Risk SIRS Temperature: Pulse: 112 Respiratory Rate: 18 Laboratory Tests 03/31/20 18:16: White Blood Count 6.3 Blood Pressure 183 /93 Mean: 123 Laboratory Tests 03/31/20 18:16: Creatinine 1.03, INR Comment 2.4H, Platelet Count 161, Total Bilirubin 0.4 Results/Orders Lab Results Laboratory Tests Test 03/31/20 18:14 03/31/20 18:16 Range/Units White Blood Count 6.3 4.3-11.0 10^3/uL Red Blood Count 4.09 L 4.35-5.85 10^6/uL Hemoglobin 12.8 L 13.3-17.7 G/DL Hematocrit 39 L 40-54 % Mean Corpuscular Volume 96 80-99 FL Mean Corpuscular Hemoglobin 31 25-34 PG Mean Corpuscular Hemoglobin Concent 33 32-36 G/DL Red Cell Distribution Width 13.9 10.0-14.5 % Platelet Count 161 130-400 10^3/uL Mean Platelet Volume 11.0 H 7.4-10.4 FL Neutrophils (%) (Auto) 70 42-75 % Lymphocytes (%) (Auto) 18 12-44 % Monocytes (%) (Auto) 11 0-12 % Eosinophils (%) (Auto) 1 0-10 % Basophils (%) (Auto) 0 0-10 % Neutrophils # (Auto) 4.4 1.8-7.8 X 10^3 Lymphocytes # (Auto) 1.1 1.0-4.0 X 10^3 Monocytes # (Auto) 0.7 0.0-1.0 X 10^3 Eosinophils # (Auto) 0.1 0.0-0.3 10^3/uL Basophils # (Auto) 0.0 0.0-0.1 10^3/uL Prothrombin Time 26.7 H 12.2-14.7 SEC INR Comment 2.4 H 0.8-1.4 D-Dimer 0.50 H 0.00-0.49 UG/ML Sodium Level 140 135-145 MMOL/L Potassium Level 4.3 3.6-5.0 MMOL/L Chloride Level 105 98-107 MMOL/L Carbon Dioxide Level 22 21-32 MMOL/L Anion Gap 13 5-14 MMOL/L Blood Urea Nitrogen 21 H 7-18 MG/DL Creatinine 1.03 0.60-1.30 MG/DL Estimat Glomerular Filtration Rate > 60 BUN/Creatinine Ratio 20 Glucose Level 196 H 70-105 MG/DL Calcium Level 9.2 8.5-10.1 MG/DL Corrected Calcium 8.8 8.5-10.1 MG/DL Total Bilirubin 0.4 0.1-1.0 MG/DL Aspartate Amino Transf (AST/SGOT) 52 H 5-34 U/L Alanine Aminotransferase (ALT/SGPT) 60 H 0-55 U/L Alkaline Phosphatase 53 40-136 U/L Lactate Dehydrogenase 367 H 125-220 U/L C-Reactive Protein High Sensitivity 0.86 H 0.00-0.50 MG/DL Total Protein 7.8 6.4-8.2 GM/DL Albumin 4.5 3.2-4.5 GM/DL Procalcitonin 0.05 <0.10 NG/ML My Orders Orders - MARTHA LOPEZ ENTRY LEVEL [place] Cbc With Automated Diff (03/31/20 18:21) Comprehensive Metabolic Panel (03/31/20 18:21) Fibrin Degradation Products (03/31/20 18:21) Procalcitonin (Pct) (03/31/20 18:21) LDH (03/31/20 18:21) Chest 1 View, Ap/Pa Only (03/31/20 18:21) Coronavirus Sars-Cov-2 So 2018 (03/31/20 18:21) Protime With Inr (03/31/20 18:21) Hs C Reactive Protein (03/31/20 18:21) Metoprolol Tartrate Injection (Lopressor (03/31/20 18:30) Azithromycin Tablet (Zithromax Tablet) (03/31/20 19:30) Medications Given in ED Current Medications Medications Dose Ordered Sig/Altagracia Route Start Time Stop Time Status Last Admin Dose Admin Metoprolol Tartrate 5 mg ONCE ONCE IV 03/31/20 18:30 03/31/20 18:31 DC 03/31/20 18:41 5 MG Vital Signs/I&O 03/31/20 18:19 Temp 37.7 Pulse 112 Resp 18 B/P (MAP) 183/93 (123) O2 Delivery Room Air Capillary Refill : Less Than 3 Seconds Blood Pressure Mean: 123 Departure Impression Primary Impression: Cough Additional Impressions: Hypertension Bronchitis Disposition: 01 HOME, SELF-CARE Condition: Stable Departure-Patient Inst. Decision time for Depature: 18:41 Referrals: JESSICA SALAZAR MD (PCP/Family) Primary Care Physician Patient Instructions: Acute Bronchitis, Cough, Adult (DC) Add. Discharge Instructions: 1. The COVID19 results should be back in about 24-48 hours. Until those results come back we should play it safe, assume that you have it, and have you quarantine away from family and friends. This will help reduce the risk of spreading it. You should return to the emergency room for any difficulty breathing or other concerns. Continue with the Mucinex to help control the cough and phlegm. Antibiotics as directed. All discharge instructions reviewed with patient and/or family. Voiced understanding. Scripts Cefuroxime Axetil (Cefuroxime) 250 Mg Tablet 250 MG PO BID, #10 TAB . Prov: MARTHA LOPEZ APRN 03/31/20 MARTHA LOPEZ APRN Mar 31, 2020 18:25
[2020-03-31] MEDS ORDERED: meTOprolol 5 MG/5 ML (LOPRESSOR) VIAL IV ONE (18:30)
[2020-03-31 18:31] LABS: BASOPHILS % (AUTO) 0 % (0-10); EOSINOPHILS # (AUTO) 0.1 10^3/uL (0.0-0.3); EOSINOPHILS % (AUTO) 1 % (0-10); HEMATOCRIT 39 % (40-54); HEMOGLOBIN 12.8 G/DL (13.3-17.7); LYMPHOCYTES # (AUTO) 1.1 X 10^3 (1.0-4.0); LYMPHOCYTES % (AUTO) 18 % (12-44); MEAN CORPUSCULAR HEMOGLOBIN 31 PG (25-34); MEAN CORPUSCULAR HGB CONC 33 G/DL (32-36); MEAN CORPUSCULAR VOLUME 96 FL (80-99); MONOCYTES # (AUTO) 0.7 X 10^3 (0.0-1.0); MONOCYTES % (AUTO) 11 % (0-12); NEUTROPHILS # (AUTO) 4.4 X 10^3 (1.8-7.8); NEUTROPHILS % (AUTO) 70 % (42-75); PLATELET COUNT 161 10^3/uL (130-400); RED CELL DISTRIBUTION WIDTH 13.9 % (10.0-14.5); WHITE BLOOD COUNT 6.3 10^3/uL (4.3-11.0)
[2020-03-31 18:43] LABS: ALBUMIN 4.5 GM/DL (3.2-4.5); CHLORIDE 105 MMOL/L (98-107); POTASSIUM 4.3 MMOL/L (3.6-5.0); SODIUM 140 MMOL/L (135-145)
[2020-03-31 18:45] LABS: CALCIUM 9.2 MG/DL (8.5-10.1)
[2020-03-31 18:46] LABS: GLUCOSE 196 MG/DL (70-105); TOTAL PROTEIN 7.8 GM/DL (6.4-8.2)
[2020-03-31 18:47] LABS: CARBON DIOXIDE 22 MMOL/L (21-32)
[2020-03-31 18:48] LABS: BILIRUBIN,TOTAL 0.4 MG/DL (0.1-1.0)
[2020-03-31 18:49] LABS: ALKALINE PHOSPHATASE 53 U/L (40-136); CREATININE SERUM 1.03 MG/DL (0.60-1.30); GFR ESTIMATED > 60
[2020-03-31 18:51] LABS: BUN/CREATININE RATIO 20
--- NOTE | 2020-03-31 18:51 | Diagnostic Imaging Report ---
INDICATION: Fever. COMPARISON: 07/07/2012. TECHNIQUE: Single frontal radiograph of the chest dated March 31, 2020. FINDINGS: Postsurgical changes of a median sternotomy. The cardiac silhouette is within normal limits in size. No significant pulmonary vascular congestion. The lungs are clear of focal pulmonary opacity. No pleural effusion. No pneumothorax. No acute osseous abnormality. IMPRESSION: Postsurgical changes without acute cardiopulmonary abnormality. Dictated by: Dictated on workstation # [id number]
[2020-03-31 18:52] LABS: ALANINE AMINOTRANSFERASE 60 U/L (0-55)
[2020-03-31 19:06] LABS: FIBRIN DEGRADATION PRODUCTS 0.5 UG/ML (0.00-0.49); INR 2.4 (0.8-1.4); PROTHROMBIN TIME PATIENT 26.7 SEC (12.2-14.7)
[2020-03-31] MEDS ORDERED: CEFU250T80 PO ×2 (19:18→19:21)
[2020-03-31 19:25] VITALS: BP 176/86
[2020-03-31] MEDS ORDERED: AZITHROMYCIN 250 MG TAB (ZITHROMAX) PO SCH (19:30)
--- NOTE | 2020-04-01 19:06 | NUR ---
PT NOTIFIED OF POSITIVE COVID RESULTS.
== END 2020-03-31 19:25 | disposition home or self-care (01) ==
LOC: EDUNIT# 18:07 → ER 18:08
DX: U07.1 COVID-19 (principal); J40 Bronchitis, not specified as acute or chronic; I10 Essential (primary) hypertension; Z79.82 Long term (current) use of aspirin; Z79.899 Other long term (current) drug therapy; Z79.84 Long term (current) use of oral hypoglycemic drugs; Z79.01 Long term (current) use of anticoagulants; Z87.891 Personal history of nicotine dependence
CPT/HCPCS: 71045; 80053; 83615; 84145; 85025; 85379; 85610; 86141; 99282; U0002; 36415; 87635

== ENCOUNTER 2020-04-05 22:56 | Emergency (ER) | payer BC, MEDICARE ==
[~2020-04-05 22:56] MED LIST changes: +CEFU250T80 PO
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
--- OUTSIDE RECORDS SUMMARY | 2020-04-05 23:04 | XMS REPORT | Continuity of Care Document ---
Author Organization Unknown Address Unknown Phone Unavailable Allergies Active Description Code Type Severity Reaction Onset Reported/Identified Relationship to Patient Clinical Status Yes NO KNOWN DRUG ALLERGIES UNKNOWN UNKNOWN Yes carvedilol [id number] Drug Allerg y Mild RASH 10/19/2009 Yes No Known Drug Allergies [id number] Drug Allergy Unknown N/A 03/31/2020 Medications There is no data. 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 4 01/12/2015 DOUGLAS WOLF, CURTIS J Ot 401. 9 01/12/2015 DOUGLAS WOLF, CURTIS J Ot 414. 00 01/12/2015 DOUGLAS WOLF, CURTIS J Ot 433. 10 01/12/2015 DOUGLAS WOLF, CURTIS J Ot 272. 4 01/12/2015 DOUGLAS WOLF, CURTIS J Ot 401. 9 01/12/2015 DOUGLAS WOLF, CURTIS J Ot 414. 00 01/12/2015 DOUGLAS WOLF, CURTIS J Ot 433. 10 01/12/2015 DOUGLAS WOLF, CURTIS J Ot 272. 4 01/12/2015 DOUGLAS WOLF, CURTIS J Ot 401. 9 01/12/2015 DOUGLAS WOLF, CURTIS J Ot 414. 00 01/12/2015 DOUGLAS WOLF, CURTIS J Ot 433. 10 01/12/2015 DOUGLAS WOLF, CURTIS J Ot 272. 4 01/12/2015 DOUGLAS WOLF, CURTIS J Ot 401. 9 01/12/2015 DOUGLAS WOLF, CURTIS J Ot 414. 00 01/12/2015 DOUGLAS WOLF, CURTIS J Ot 433. 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 10 ATHSCL HEART DISEASE OF [place] CORONARY 01/25/2016 CURTIS COLE MD Ot I65. 23 OCCLUSION AND STENOSIS OF BIL[place] TIM 01/25/2016 CURTIS COLE MD Ot E78. 2 MIXED HYPERLIPIDEMIA 01/25/2016 CURTIS COLE MD Ot I10 ESSENTIAL (PRIMARY) HYPERTENSION 01/25/2016 CURTIS COLE MD Ot I25. 10 ATHSCL HEART DISEASE OF [place] CORONARY 01/25/2016 CURTIS COLE MD Ot I65. 23 OCCLUSION AND STENOSIS OF BILATERAL TIM 02/14/2016 CURTIS COLE MD Ot E78. 2 MIXED HYPERLIPIDEMIA 02/14/2016 CURTIS COLE MD Ot I10 ESSENTIAL (PRIMARY) HYPERTENSION 02/14/2016 CURTIS COLE MD Ot I25. 10 ATHSCL HEART DISEASE OF [place] CORONARY 02/14/2016 CURTIS COLE MD Ot I65. 23 OCCLUSION AND STENOSIS OF BILATERAL TIM 02/22/2016 CURTIS COLE MD Ot E78. 2 MIXED HYPERLIPIDEMIA 02/22/2016 CURTIS COLE MD Ot I10 ESSENTIAL (PRIMARY) HYPERTENSION 02/22/2016 CURTIS COLE MD Ot I25. 10 ATHSCL HEART DISEASE OF [place] CORONARY 02/22/2016 CURTIS COLE MD Ot I65. [...] T VALVE REPLAC NEC 01/22/2017 Ot 571.8 ASSISTANT FINANCE MANAGER SHANNON LIVER DIS NEC 01/22/2017 Ot 789.1 [...] O CEREBRAL IN 01/22/2017 JESSICA SALAZAR MD Ot 723. 1 CERVICALGIA 01/22/2017 JESSICA SALAZAR MD R Ot 784. 0 HEADACHE 01/22/2017 JESSICA SALAZAR MD R Ot 723. 1 CERVICALGIA 01/22/2017 JESSICA SALAZAR MD Ot 784. 0 HEADACHE 01/22/2017 CURTIS COLE MD Ot E78. 2 MIXED HYPERLIPIDEMIA 01/22/2017 CURTIS COLE MD Ot I10 ESSENTIAL (PRIMARY) HYPERTENSION 01/22/2017 CURTIS COLE MD Ot I25. 10 ATHSCL HEART DISEASE OF [place] CORONARY 01/22/2017 CURTIS COLE MD Ot I65. [...] T VALVE REPLAC NEC 01/26/2017 Ot 571.8 ASSISTANT FINANCE MANAGER SHANNON LIVER DIS NEC 01/26/2017 Ot 789.1 [...] Ot I25. 10 ATHSCL HEART DISEASE OF [place] CORONARY 01/26/2017 CURTIS COLE MD Ot I65. 23 OCCLUSION AND STENOSIS OF BILATER[place] TIM 01/27/2017 CURTIS COLE MD Ot E11. 9 TYPE 2 DIABETES MELLITUS WITHOUT COMPLIC 01/27/2017 CURTIS COLE MD Ot E78. 2 MIXED HYPERLIPIDEMIA 01/27/2017 CURTIS COLE MD Ot I10 ESSENTIAL (PRIMARY) HYPERTENSION 01/27/2017 CURTIS COLE MD Ot I25. 10 ATHSCL HEART DISEASE OF [place] CORONARY 01/27/2017 CURTIS COLE MD Ot I65. 23 OCCLUSION AND STENOSIS OF [place]ILATER[place] TIM 02/18/2017 CURTIS COLE MD Ot E11. 9 TYPE 2 DIABETES MELLITUS WITHOUT COMPLIC 02/18/2017 CURTIS COLE MD Ot E78. 2 MIXED HYPERLIPIDEMIA 02/18/2017 CURTIS COLE MD Ot I10 ESSENTIAL (PRIMARY) HYPERTENSION 02/18/2017 CURTIS COLE MD Ot I25. 10 ATHSCL HEART DISEASE OF [place] CORONARY 02/18/2017 CURTIS COLE MD Ot I65. 23 OCCLUSION AND STENOSIS OF [place] TIM 02/25/2017 CURTIS COLE MD Ot E11. 9 TYPE 2 DIABETES MELLITUS WITHOUT COMPLIC 02/25/2017 CURITS COLE MD Ot E78. 2 MIXED HYPERLIPIDEMIA 02/25/2017 CURTIS COLE MD Ot I10 ESSENTIAL (PRIMARY) HYPERTENSION 02/25/2017 DOUGLAS MD, BASHAR J Ot I25. 10 ATHSCL HEART DISEASE OF [place] CORONARY 02/25/2017 CURTIS COLE MD Ot I65. 23 OCCLUSION AND STENOSIS OF [place]ILATER[place] TIM 06/12/2017 CURTIS COLE MD Ot E11. 9 TYPE 2 DIABETES MELLITUS WITHOUT COMPLIC 06/12/2017 CURTIS COLE MD Ot E78. 2 MIXED HYPERLIPIDEMIA 06/12/2017 CURTIS COLE MD Ot I10 ESSENTIAL (PRIMARY) HYPERTENSION 06/12/2017 CURTIS COLE MD Ot I25. 10 ATHSCL HEART DISEASE OF [place] CORONARY 06/12/2017 CURTIS COLE MD Ot I65. 23 OCCLUSION AND STENOSIS OF [place]ILATER[place] TIM 06/18/2017 CURTIS COLE MD Ot E11. 9 TYPE 2 DIABETES MELLITUS WITHOUT COMPLIC 06/18/2017 CURTIS COLE MD Ot E78. 2 MIXED HYPERLIPIDEMIA 06/18/2017 CURTIS COLE MD Ot I10 ESSENTIAL (PRIMARY) HYPERTENSION 06/18/2017 CURTIS COLE MD Ot I25. 10 ATHSCL HEART DISEASE OF [place] CORONARY 06/18/2017 CURTIS COLE MD Ot I65. [...] OCCLUSION W O CEREBRAL IN 09/14/2018 MARTIN WOLF JESSICA R Ot 723. 1 CERVICALGIA 09/14/2018 MARTIN WOLF JESSICA R Ot 784. 0 HEADACHE 09/14/2018 JESSICA SALAZAR MD R Ot 723. 1 CERVICALGIA 09/14/2018 MARTIN WOLF JESSICA R Ot 784. 0 HEADACHE 09/14/2018 CURTIS COLE MD Ot E78. 2 MIXED HYPERLIPIDEMIA 09/14/2018 CURTIS COLE MD Ot I10 ESSENTIAL (PRIMARY) HYPERTENSION 09/14/2018 CURTIS COLE MD Ot I25. 10 ATHSCL HEART DISEASE OF [place] CORONARY 09/14/2018 CURTIS COLE MD Ot I65. 23 OCCLUSION AND STENOSIS OF [place] TIM 09/14/2018 CURTIS COLE MD Ot E11. 9 TYPE 2 DIABETES MELLITUS WITHOUT COMPLIC 09/14/2018 CURTIS COLE MD Ot E78. 2 MIXED HYPERLIPIDEMIA 09/14/2018 CURTIS COLE MD Ot I10 ESSENTIAL (PRIMARY) HYPERTENSION 09/14/2018 CURTIS COLE MD Ot I25. 10 ATHSCL HEART DISEASE OF [place] CORONARY 09/14/2018 CURTIS COLE MD Ot I65. 23 OCCLUSION AND STENOSIS OF [place] TIM 09/14/2018 CURTIS COLE MD Ot E11. 9 TYPE 2 DIABETES MELLITUS WITHOUT COMPLIC 09/14/2018 CURTIS COLE MD Ot E78. 2 MIXED HYPERLIPIDEMIA 09/14/2018 CURTIS COLE MD Ot I10 ESSENTIAL (PRIMARY) HYPERTENSION 09/14/2018 CURTIS COLE MD Ot I25. 10 ATHSCL HEART DISEASE OF [place] CORONARY 09/14/2018 CURTIS COLE MD Ot I65. 23 OCCLUSION AND STENOSIS OF [place] TIM 09/14/2018 CURTIS COLE MD Ot E11. 9 TYPE 2 DIABETES MELLITUS WITHOUT COMPLIC 09/14/2018 CURTIS COLE MD Ot E78. 2 MIXED HYPERLIPIDEMIA 09/14/2018 CURTIS COLE MD Ot I10 ESSENTIAL (PRIMARY) HYPERTENSION 09/14/2018 CURTIS COLE MD Ot I25. 10 ATHSCL HEART DISEASE OF [place] CORONARY 09/14/2018 CURTIS COLE MD Ot I65. [...] Ot I25. 10 ATHSCL HEART DISEASE OF [place] CORONARY 09/14/2018 CURTIS COLE MD Ot I65. 23 OCCLUSION AND STENOSIS OF [place] 09/14/2018 CURTIS COLE MD Ot E11. 9 TYPE 2 DIABETES MELLITUS WITHOUT COMPLIC 09/14/2018 CURTIS COLE MD Ot E78. 2 MIXED HYPERLIPIDEMIA 09/14/2018 CURTIS COLE MD Ot I10 ESSENTIAL (PRIMARY) HYPERTENSION 09/14/2018 CURTIS COLE MD Ot I25. 10 ATHSCL HEART DISEASE OF [place] CORONARY 09/14/2018 CURTIS COLE MD Ot I65. 23 OCCLUSION AND STENOSIS OF [place] TIM 09/14/2018 CURTIS COLE MD Ot E11. 9 TYPE 2 DIABETES MELLITUS WITHOUT COMPLIC 09/14/2018 CURTIS COLE MD Ot E78. 2 MIXED HYPERLIPIDEMIA 09/14/2018 CURTIS COLE MD Ot I10 ESSENTIAL (PRIMARY) HYPERTENSION 09/14/2018 CURTIS COLE MD Ot I25. 10 ATHSCL HEART DISEASE OF [place] CORONARY 09/14/2018 CURTIS COLE MD Ot I65. 23 OCCLUSION AND STENOSIS OF BILATER[place] TIM 09/14/2018 CURTIS COLE MD Ot E11. 9 TYPE 2 DIABETES MELLITUS WITHOUT COMPLIC 09/14/2018 CURTIS COLE MD Ot E78. 2 MIXED HYPERLIPIDEMIA 09/14/2018 CURTIS COLE MD Ot I10 ESSENTIAL (PRIMARY) HYPERTENSION 09/14/2018 CURTIS COLE MD Ot I25. 10 ATHSCL HEART DISEASE OF [place] CORONARY 09/14/2018 CURTIS COLE MD Ot I65. [...] Ot I25. 10 ATHSCL HEART DISEASE OF [place] CORONARY 09/20/2018 CURTIS COLE MD Ot I65. [...] Ot I25. 10 ATHSCL HEART DISEASE OF [place] CORONARY 10/06/2018 CURTIS COLE MD Ot I65. [...] Ot I25. 10 ATHSCL HEART DISEASE OF [place] CORONARY 10/14/2018 DOUGLAS WOLF, CURTIS Gibson Ot I65. 23 OCCLUSION AND STENOSIS OF [place] TIM 10/14/2018 DOUGLAS WOLF, CURTIS Gibson Ot Z95. 2 PRESENCE OF PROSTHETIC HEART VALVE 11/25/2019 W E11.40 Naya betic neuropathy Cliffordnder, Ellyn S. 11/25/2019 W E78.2 Mixe d hyperlipidemia Orender, Ellyn S. 11/25/2019 W I10 Essent ial hypertension Orender, Ellyn S. 11/25/2019 W Z95.2 H/O aortic valve replacement Orender, Ellyn S. 01/11/2020 Richard Jimenes F33.1 MAJOR DEPRESSIVE DISORDER, RECURRENT, MODERATE 01/11/2020 Richard Jimenes F41.1 GENERALIZED ANXIETY DISORDER 01/11/2020 Richard Jimenes G47.00 INSOMNIA, UNSPECIFIED 02/14/2020 W E11.40 Naya betic neuropathy Orender, Ellyn S. 02/14/2020 W I10 Essent ial hypertension Orender, Ellyn S. 02/14/2020 W E11.40 Naya betic neuropathy Orender, Ellyn S. 02/14/2020 W I10 Essent ial hypertension Cliffordnder, Ellyn S. 04/01/2020 Richard Jimenes W 780.2 SYNCOPE AND COLLAPSE 04/01/2020 Richard Jimenes R55 SYNCOPE AND COLLAPSE Procedures Code Description Performed By Per malena On 80.21 IRINA BROWNER ARTHROSCOPY 10/24/2009 83.13 OTHE R TENOTOMY 10/24/2009 83.63 ROTA TOR CUFF REPAIR 10/24/2009 86.28 NONE XCIS DEBRID OF WOUND, INFECT, OR BUR 11/28/2009 Results Test Result Range Coronavirus SARS-CoV-2 SO 2018 - 0 18:14 Coronavirus Ab [Units/volume] in Serum Positive Negative Complete blood count (CBC) with automate d white blood cell (WBC) differential - 03/31/20 18:16 Blood leukocytes automated count (number/volume) 6.3 10*3/uL 4.3-11.0 Blood erythrocytes automated count (number/volume) 4.09 10*6/uL 4.35-5.85 Venous blood hemoglobin measurement (mass/volume) 12.8 g/dL 13.3-17.7 Blood hematocrit (volume fraction) 39 % 40-54 Automated erythrocyte mean corpuscular volume 96 [ foz_us] 80-99 Automated erythrocyte mean corpuscular h emoglobin (mass per erythrocyte) 31 pg 25-34 Automated erythrocyte mean corpuscular h emoglobin concentration measurement (mass/volume) 33 g/dL 32-36 Automated erythrocyte distribution width ratio 13. 9 % 10.0- 14.5 Automated blood platelet count (count/volume) 161 10*3/uL 130-400 Automated blood platelet mean volume measurement 11.0 [foz_us] 7.4-10.4 Automated blood neutrophils/100 leukocytes 70 % 42-75 Automated blood lymphocytes/100 leukocytes 18 % 12-44 Blood monocytes/100 leukocytes 11 % 0-12 Automated blood eosinophils/100 leukocytes 1 % 0-10 Automated blood basophils/100 leukocytes 0 % 0-10 Blood neutrophils automated count (number/volume) 4.4 10*3 1.8-7.8 Blood lymphocytes automated count (number/volume) 1.1 10*3 1.0-4.0 Blood monocytes automated count (number/volume) 0. 7 10*3 0.0-1.0 Automated eosinophil count 0.1 10*3/uL 0 .0-0.3 Automated blood basophil count (count/volume) 0.0 10*3/uL 0.0-0.1 Comprehensive metabolic panel - 03/31/20 18:16 Serum or plasma sodium measurement (moles/volume) 140 mmol/L 135-145 Serum or plasma potassium measurement (moles/volume) 4.3 mmol/L 3.6-5.0 Serum or plasma chloride measurement (moles/volume) 105 mmol/L 98-107 Carbon dioxide 22 mmol/L 21-32 Serum or plasma anion gap determination (moles/volume) 13 mmol/L 5-14 Serum or plasma urea nitrogen measurement (mass/volume ) 21 mg/dL 7-18 Serum or plasma creatinine measurement (mass/volume) 1.03 mg/dL 0.60-1.30 Serum or plasma urea nitrogen/creatinine mass ratio 20 NRG Serum or plasma creatinine measurement w ith calculation of estimated glomerular filtration rate > NRG Serum or plasma glucose measurement (mass/volume) 196 mg/dL 70-105 Serum or plasma calcium measurement (mass/volume) 9.2 mg/dL 8.5-10.1 Serum or plasma total bilirubin measurement (mass/volu me) 0.4 mg/dL 0.1-1.0 Serum or plasma alkaline phosphatase tiana surement (enzymatic activity/volume) 53 U/L 40-136 Serum or plasma aspartate aminotransfera se measurement (enzymatic activity/volume) 52 U/L 5-34 Serum or plasma alanine aminotransferase measurement (enzymatic activity/volume) 60 U/L 0-55 Serum or plasma protein measurement (mass/volume) 7.8 g/dL 6.4-8.2 Serum or plasma albumin measurement (mass/volume) 4.5 g/dL 3.2-4.5 CALCIUM CORRECTED 8.8 mg/dL 8.5-10.1 Serum ragweed IgE antibody assay - 03/31 18:16 Serum ragweed IgE antibody assay 367 U/L 125-220 PROCALCITONIN (PCT) - 03/31/20 18:16 PROCALCITONIN (PCT) 0.05 ng/mL <0.10 PT panel in platelet poor plasma by coag ulation assay - 03/31/20 18:16 Prothrombin time (PT) in platelet poor plasma by coagu lation assay 26.7 s 12.2-14.7 INR in platelet poor plasma or blood by coagulation as say 2.4 0.8-1.4 Fibrin D-dimer FEU measurement in platel et poor plasma (mass/volume) - 03/31/20 18:16 Fibrin D-dimer FEU measurement in platelet poor plasma (mass/volume) 0.50 ug/mL 0.00-0.49 Serum or plasma C reactive protein measu rement (mass/volume) - 03/31/20 18:16 Serum or plasma C reactive protein measurement (mass/v olume) 0.86 mg/dL 0.00-0.50 Thyroid Stimulating Hormone - 04/01/20 0 3:44 TSH 2.52 mIU/mL 0.32-5.00 Urinalysis - 04/01/20 04:39 Icotest N/A Negative Urine Volume Urine Volume Sufficient (10mL) Urine-Appearance Clear Clear Urine-Bacteria Rare Urine-Bilirubin Negative Negative Urine-Blood Negative Negative Urine-Color Yellow Colorless-[place] ow Urine-Epithelial Cells 0-5/HPF Urine-Glucose Trace Negative Urine-Ketones Negative Negative Urine-Leukocytes Negative Negative Urine-Mucus 1+ Urine-Nitrite Negative Negative Urine-Other Urine Saved if Culture Need ed (48hrs from time of collection) Urine-pH 5.0 5-8.5 Urine-Protein Trace Negative Urine-RBC 0-2/HPF Urine-Specific [place] 1.025 1.000-1 .030 Urine-WBC 0-2/HPF Urobilinogen 0.2 0.2-1.0 Encounters ACCT No. Visit Date/Time Discharge Status Pt. Type Provider Facility Loc./Unit Complaint [id number] 04/01/2020 03:06:00 04/01/2020 05:25 :00 [id number] 01/12/2020 13:13:00 01/12/2020 23:59 :00 DIS Outpatient Tika Molina [id number] 11/11/2019 10:14:18 11/11/2019 23:59:5 9 CLS Outpatient [id number] 03/31/2020 18:08:00 020 19:25:00 DIS Emergency LOPEZMARTHA APPLIQUER [facility] ER FEVER [id number] 09/14/2018 08:24:00 018 23:59:59 CLS Outpatient CURTIS COLE MD [facility] CARD CAD,CAROTID STENOSIS BI L [id number] 05/20/2017 07:44:00 017 23:59:59 CLS Outpatient CURTIS COLE MD [facility] CARD CAD I25.10 [id number] 05/11/2017 07:24:00 017 23:59:59 CLS Outpatient CURTIS COLE MD [facility] CARD I25.10 CAD [id number] 01/26/2017 08:01:00 017 23:59:59 CLS Outpatient CURTIS COLE MD [facility] CARD I25.10,I65.23,E11.9,I10 [id number] 01/24/2016 07:49:00 016 23:59:59 CLS Outpatient CURTIS COLE MD [facility] CARD CAD,HTN,HLP, [id number] 12/01/2015 11:01:00 016 13:22:00 DIS Emergency GE GONZALES [facility] ER CONGESTION [id number] 03/25/2015 06:40:00 015 09:57:00 DIS Emergency SIS FERRIS MD [facility] ER SYNCOPE [id number] 01/26/2015 08:13:00 015 23:59:59 CLS Outpatient MARTIN WOLF, JESSICA Cevallos [facility] RAD PAIN [id number] 01/19/2015 15:42:00 015 23:59:59 CLS Outpatient MARTIN WOLF, JESSICA R [facility] RAD PAIN, [id number] 10/24/2014 09:33:00 015 23:59:59 CLS Outpatient CURTIS COLE MD [facility] CARD CAD,HTN,HLP [id number] 10/23/2014 07:05:00 015 23:59:59 CLS Outpatient CURTIS COLE MD [facility] CARD CAD,HTN,HLP [id number] 07/15/2014 15:59:00 014 16:45:00 DIS Emergency GIULIANO ESPINOZA MD [facility] ER BIT TONGUE [id number] 10/24/2014 09:34:00 Document Registration [id number] 10/24/2014 09:34:00 Document Registration [id number] 08/19/2012 08:29:00 Document Registration [id number] 07/26/2012 09:24:00 Document Registration [id number] 07/07/2012 10:42:00 Document Registration [id number] 05/19/2012 07:47:00 Document Registration [id number] 05/17/2012 08:22:00 Document Registration [id number] 08/04/2011 09:39:00 Document Registration [id number] 02/18/2011 10:05:00 Document Registration [id number] 11/28/2009 05:56:00 Document Registration [id number] 11/27/2009 15:25:00 Document Registration [id number] 10/19/2009 10:30:00 Document Registration
[2020-04-05] MEDS ORDERED: NS IV 1000 ML 1,000 ML IV SCH (23:07)
[2020-04-05 23:15] LABS: BASOPHILS % (AUTO) 0 % (0-10); EOSINOPHILS % (AUTO) 1 % (0-10); HEMATOCRIT 37 % (40-54); HEMOGLOBIN 12.6 G/DL (13.3-17.7); LYMPHOCYTES # (AUTO) 0.8 X 10^3 (1.0-4.0); LYMPHOCYTES % (AUTO) 17 % (12-44); MEAN CORPUSCULAR HEMOGLOBIN 32 PG (25-34); MEAN CORPUSCULAR HGB CONC 34 G/DL (32-36); MEAN CORPUSCULAR VOLUME 93 FL (80-99); MEAN PLATELET VOLUME 10.2 FL (7.4-10.4); MONOCYTES # (AUTO) 0.4 X 10^3 (0.0-1.0); MONOCYTES % (AUTO) 9 % (0-12); NEUTROPHILS # (AUTO) 3.5 X 10^3 (1.8-7.8); NEUTROPHILS % (AUTO) 73 % (42-75); PLATELET COUNT 141 10^3/uL (130-400); RED CELL DISTRIBUTION WIDTH 13.4 % (10.0-14.5); WHITE BLOOD COUNT 4.8 10^3/uL (4.3-11.0)
[2020-04-05 23:22] LABS: ALBUMIN 4.2 GM/DL (3.2-4.5); POTASSIUM 4.3 MMOL/L (3.6-5.0)
[2020-04-05 23:24] LABS: CALCIUM 8.7 MG/DL (8.5-10.1)
[2020-04-05 23:25] LABS: TOTAL PROTEIN 7.3 GM/DL (6.4-8.2)
[2020-04-05 23:26] LABS: BILIRUBIN,TOTAL 0.4 MG/DL (0.1-1.0); INR 1.9 (0.8-1.4)
[2020-04-05 23:28] LABS: CREATININE SERUM 1.43 MG/DL (0.60-1.30)
[2020-04-05 23:31] LABS: MAGNESIUM 2.1 MG/DL (1.6-2.4)
[2020-04-05] MEDS ORDERED: LACTATED RINGERS 1,000 ML IV ONE (23:47)
[2020-04-06] MEDS ORDERED: DOXYCYCLINE 100 MG (VIBRAMYCIN) TABLET PO ONE
[2020-04-06] MEDS ORDERED: LACTATED RINGERS 1,000 ML IV ONE (00:56)
--- NOTE | 2020-04-06 01:15 | ED General ---
General Chief Complaint: Neurological Problems Stated Complaint: WEAKNESS/LOSS OF BALANCE/POSITIVE COVID Nursing Triage Note: TO ED VIA POV, PT IS COVID-19 POSITIVE AND PLACED INTO ROOM 10 UNDER DROPLET PRECAUTIONS. PT STATES HE STARTED FEELING WEAK THIS EVENING. 03/31- HE WAS AT THIS ER FOR SHOULDER PAIN AND WAS SWABBED FOR COVID, 04/01- HE WENT TO [facility] ER FOR CONFUSION AND STATES LAB WORK WAS OK AND CT HEAD WAS NEGATIVE. STATES HE WAS TOLD HE WAS COVID POSITIVE EARLY THIS WEEK AND HAS SINCE BEEN QUARANTINED. TOOK PRESCRIBED XANAX APPROX 2100 THIS EVENING. DENIES FEVER, COUGH, SOA. Nursing Sepsis Screen: No Definite Risk Source of Information: Patient, Family, Old Records Exam Limitations: No Limitations History of Present Illness Date Seen by Provider: Apr 05, 2020 Time Seen by Provider: 23:00 Initial Comments This 70-year-old gentleman presents to the emergency room with complaints of feeling off balance. Family reports she has been a little confused as well. He was diagnosed with COVID-19 on March 31. He had some confusion on April 01 and presented to [facility]. Reportedly CT scan of the head was obtained and there and was unremarkable. Patient was observed to stumble slightly while stepping into the wheelchair. He is alert and oriented on my assessment. He denies any cough or shortness of breath at this time. 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 Allergies and Home Medications Allergies Coded Allergies: No Known Drug Allergies (Unverified , 03/31/20) Home Medications Allopurinol 300 Mg Tab, 300 MG PO DAILY, (Reported) Aspirin 81 Mg Chew, 81 MG PO DAILY, (Reported) Cefdinir 300 Mg Capsule, 300 MG PO BID Prescribed by: GE SOLIS on 12/01/15 1250 Cefuroxime Axetil 250 Mg Tablet, 250 MG PO BID . Prescribed by: MARTHA LOPEZ on 03/31/20 192 Cholecalciferol (Vitamin D3) 2,000 Unit Capsule, 2,000 UNIT PO DAILY, (Reported) Cyanocobalamin (Vitamin B-12) 1,000 Mcg Tablet.er, 2,000 MCG PO DAILY, (Reported) Doxycycline Hyclate 100 Mg Tablet, 100 MG PO BID Prescribed by: BRYANT BETHEA on 04/06/20 022 Glipizide 10 Mg Tablet, 10 MG PO DAILY, (Reported) Losartan/Hydrochlorothiazide 1 Tab Tablet, 1 TAB PO DAILY, (Reported) Metformin Hcl 500 Mg Tablet, 500 MG PO BID, (Reported) with meals resume 07/10/12 with dinner Metoprolol Succinate 25 Mg Tab, 25 MG PO DAILY, (Reported) Multiv,Ca,Iron,Min/Fa/Phytoste 1 Each Tablet, 1 TAB PO BID, (Reported) Naproxen Sodium 220 Mg Capsule, 440 MG PO DAILY, (Reported) Martelle 3 Polyunsat Fatty Acids 1,000 Mg Cap, 1,000 MG PO TID, (Reported) Warfarin Sod 10 Mg Tab, 15 MG PO , (Reported) Warfarin Sod 10 Mg Tab, 10 MG PO ,,Thu,Thu, (Reported) Patient Home Medication List Home Medication List Reviewed: Yes Review of Systems Review of Systems Constitutional: weakness EENTM: no symptoms reported Respiratory: no symptoms reported Cardiovascular: see HPI Gastrointestinal: no symptoms reported Genitourinary: no symptoms reported Musculoskeletal: no symptoms reported Skin: no symptoms reported Psychiatric/Neurological: See HPI Hematologic/Lymphatic: No Symptoms Reported Immunological/Allergic: no symptoms reported Past Qffsczh-Ppghmy-Bmbexn Hx Past Med/Social Hx: Reviewed Nursing Past Med/Soc Hx Patient Social History Alcohol Use: Denies Use Recreational Drug Use: No Smoking Status: Former Smoker 2nd Hand Smoke Exposure: No Recent Foreign Travel: No Contact w/Someone Who Travel: No Recent Hopitalizations: Yes Physical Abuse: No Sexual Abuse: No Mistreated: No Fear: No Immunizations Up To Date Date of Influenza Vaccine: Jun 28, 2015 Seasonal Allergies Seasonal Allergies: No Past Medical History Surgeries: Yes (APPENDECTOMY, BILAT ROTATOR CUFF, AVR) Appendectomy, Valve Replacement Respiratory: No Cardiac: Yes (HEART VALVE REPLACEMENT) Hypertension, Valvular Heart Disease Neurological: No Reproductive Disorders: No Genitourinary: No Gastrointestinal: No Musculoskeletal: Yes (TORN ROTATOR CUFF) Endocrine: No Cancer: No Psychosocial: No Integumentary: No Blood Disorders: No Family Medical History No Pertinent Family Hx Physical Exam Vital Signs Vital Signs - First Documented 04/05/20 04/06/20 22:56 02:28 Temp 36.6 Pulse 65 Resp 16 B/P (MAP) 101/68 (79) Pulse Ox 95 O2 Delivery Room Air Capillary Refill : Less Than 3 Seconds Height, Weight, BMI Height: 6'0" Weight: 212lbs. oz. 96.214125be; 30.00 BMI Method:Stated General Appearance: No Apparent Distress, WD/WN HEENT: PERRL/EOMI, Normal ENT Inspection, Pharynx Normal Neck: Normal Inspection Respiratory: Lungs Clear, Normal Breath Sounds, No Accessory Muscle Use, No Respiratory Distress Cardiovascular: Regular Rate, Rhythm, No Edema, No Murmur, Normal Peripheral Pulses Gastrointestinal: Non Tender, Soft Extremity: Normal Inspection, No Pedal Edema Neurologic/Psychiatric: Alert, Oriented x3, No Motor/Sensory Deficits, Normal M ood/Affect, field servicer II-XII Norm as Tested, Other (patient's gait is slightly disrupted, otherwise no focal deficits. Normal finger to nose and heel to smith) Skin: Normal Color, Warm/Dry Progress/Results/Core Measures Suspected Sepsis Recent Fever Within 48 Hours: No Infection Criteria Present: Documented Infection New/Unexplained Altered Menta: Yes Sepsis Screen: No Definite Risk SIRS Temperature: Pulse: 65 Respiratory Rate: 16 Laboratory Tests 04/05/20 23:05: White Blood Count 4.8 Blood Pressure 101 /68 Mean: 79 Laboratory Tests 04/05/20 23:05: Creatinine 1.43H, INR Comment 1.9H, Platelet Count 141, Total Bilirubin 0.4 Results/Orders Lab Results Laboratory Tests Test 04/05/20 01:13 04/05/20 23:05 Range/Units Urine Color YELLOW Urine Clarity SL CLOUDY Urine pH 6.0 5-9 Urine Specific [place] 1.020 1.016-1.022 Urine Protein NEGATIVE NEGATIVE Urine Glucose (UA) NEGATIVE NEGATIVE Urine Ketones NEGATIVE NEGATIVE Urine Nitrite NEGATIVE NEGATIVE Urine Bilirubin NEGATIVE NEGATIVE Urine Urobilinogen 0.2 < = 1.0 MG/DL Urine Leukocyte Esterase NEGATIVE NEGATIVE Urine RBC (Auto) NEGATIVE NEGATIVE Urine RBC NONE /HPF Urine WBC NONE /HPF Urine Squamous Epithelial Cells 0-2 /HPF Urine Crystals NONE /LPF Urine Bacteria NEGATIVE /HPF Urine Casts PRESENT /LPF Urine Hyaline Casts 2-5 H /LPF Urine Mucus SMALL H /LPF Urine Culture Indicated NO White Blood Count 4.8 4.3-11.0 10^3/uL Red Blood Count 3.96 L 4.35-5.85 10^6/uL Hemoglobin 12.6 L 13.3-17.7 G/DL Hematocrit 37 L 40-54 % Mean Corpuscular Volume 93 80-99 FL Mean Corpuscular Hemoglobin 32 25-34 PG Mean Corpuscular Hemoglobin Concent 34 32-36 G/DL Red Cell Distribution Width 13.4 10.0-14.5 % Platelet Count 141 130-400 10^3/uL Mean Platelet Volume 10.2 7.4-10.4 FL Neutrophils (%) (Auto) 73 42-75 % Lymphocytes (%) (Auto) 17 12-44 % Monocytes (%) (Auto) 9 0-12 % Eosinophils (%) (Auto) 1 0-10 % Basophils (%) (Auto) 0 0-10 % Neutrophils # (Auto) 3.5 1.8-7.8 X 10^3 Lymphocytes # (Auto) 0.8 L 1.0-4.0 X 10^3 Monocytes # (Auto) 0.4 0.0-1.0 X 10^3 Eosinophils # (Auto) 0.0 0.0-0.3 10^3/uL Basophils # (Auto) 0.0 0.0-0.1 10^3/uL Prothrombin Time 22.0 H 12.2-14.7 SEC INR Comment 1.9 H 0.8-1.4 Sodium Level 135 135-145 MMOL/L Potassium Level 4.3 3.6-5.0 MMOL/L Chloride Level 102 98-107 MMOL/L Carbon Dioxide Level 20 L 21-32 MMOL/L Anion Gap 13 5-14 MMOL/L Blood Urea Nitrogen 35 H 7-18 MG/DL Creatinine 1.43 H 0.60-1.30 MG/DL Estimat Glomerular Filtration Rate 49 BUN/Creatinine Ratio 24 Glucose Level 199 H 70-105 MG/DL Calcium Level 8.7 8.5-10.1 MG/DL Corrected Calcium 8.5 8.5-10.1 MG/DL Magnesium Level 2.1 1.6-2.4 MG/DL Total Bilirubin 0.4 0.1-1.0 MG/DL Aspartate Amino Transf (AST/SGOT) 41 H 5-34 U/L Alanine Aminotransferase (ALT/SGPT) 48 0-55 U/L Alkaline Phosphatase 55 40-136 U/L C-Reactive Protein High Sensitivity 1.07 H 0.00-0.50 MG/DL B-Type Natriuretic Peptide < 10.0 <100.0 PG/ML Total Protein 7.3 6.4-8.2 GM/DL Albumin 4.2 3.2-4.5 GM/DL My Orders Orders - BRYANT MAYFIELD MD Cbc With Automated Diff (04/05/20 23:07) Comprehensive Metabolic Panel (04/05/20 23:07) Magnesium (04/05/20 23:07) Protime With Inr (04/05/20 23:07) Ua Culture If Indicated (04/05/20 23:07) Ed Iv/Invasive Line Start (04/05/20 23:07) Ns Iv 1000 Ml (Sodium Chloride 0.9%) (04/05/20 23:07) BNP (04/05/20 23:08) Hs C Reactive Protein (04/05/20 23:08) Chest 1 View, Ap/Pa Only (04/05/20 23:08) Ed Iv/Invasive Line Start (04/05/20 23:47) Lactated Ringers (Lr 1000 Ml Iv Solution (04/05/20 23:47) Doxycycline Hyclate Tablet (Vibramycin T (04/06/20 00:00) Lactated Ringers (Lr 1000 Ml Iv Solution (04/06/20 00:56) Medications Given in ED Current Medications Medications Dose Ordered Sig/Altagracia Route Start Time Stop Time Status Last Admin Dose Admin Doxycycline Hyclate 100 mg ONCE ONCE PO 04/06/20 00:00 04/06/20 00:01 DC 04/05/20 23:58 100 MG Lactated Ringer's 1,000 ml @ 0 mls/hr Q0M ONCE IV 04/06/20 00:56 04/06/20 00:58 DC 04/06/20 01:15 999 MLS/HR Lactated Ringer's 1,000 ml @ 0 mls/hr Q0M ONCE IV 04/05/20 23:47 04/05/20 23:49 DC 04/05/20 23:58 999 MLS/HR Vital Signs/I&O 04/05/20 04/06/20 22:56 02:28 Temp 36.6 36.6 Pulse 65 75 Resp 16 18 B/P (MAP) 101/68 (79) 137/72 (79) Pulse Ox 95 O2 Delivery Room Air Room Air 04/06/20 00:00 Intake Total 1000 ml Balance 1000 ml Capillary Refill : Less Than 3 Seconds Blood Pressure Mean: 79 Progress Note #1: Time: 01:10 Progress Note Patient states he feels normal now. He has received 2 L of IV fluid but still has not been able to urinate. We will start a third liter of fluid. Blood pressures were initially soft but have improved with IV fluids. Due to increase appearance of infiltrate in the lower lung echeverria, doxycycline was added to his therapy. Progress Note #2: Progress Note Patient was able to urinate after 2 L of IV fluids. Blood pressure also improved and he was able to ambulate without difficulty at the time of discharge. Diagnostic Imaging Diagonstic Imaging: Xray Plain Films/CT/US/NM/MRI: chest Comments Slight development of lower lung infiltrates and filling of the costophrenic angles. Departure Impression Primary Impression: Hypovolemia Additional Impressions: Coronavirus infection Weakness Dizziness Disposition: 01 HOME, SELF-CARE Condition: Improved Departure-Patient Inst. Decision time for Depature: 02:18 Referrals: CAROLYNN SOLO DO (PCP/Family) Primary Care Physician Patient Instructions: Coronavirus Disease 2019 (COVID-19) Overview Add. Discharge Instructions: Drink plenty of clear liquids. Complete your antibiotics as prescribed. Follow-up with Dr. Solo by phone tomorrow to give her an update. Return to the emergency room or call to discuss your condition if symptoms are worsening. Your INR is 1.9. Please discuss your warfarin dosing with your prescriber later today. All discharge instructions reviewed with patient and/or family. Voiced understanding. Scripts Doxycycline Hyclate (Doxycycline Hyclate) 100 Mg Tablet 100 MG PO BID, #20 TAB 0 Refills Prov: BRYANT MAYFIELD MD 04/06/20 Copy Copies To 1: CAROLYNN SOLO DO Copies To 2: CURTIS COLE MD, JOSHUA T MD Apr 06, 2020 01:15
[2020-04-06 01:20] LABS: BILIRUBIN,URINE NEGATIVE (NEGATIVE); CLARITY,URINE SL CLOUDY; COLOR,URINE YELLOW; GLUCOSE, URINE (UA) NEGATIVE (NEGATIVE); KETONES,URINE NEGATIVE (NEGATIVE); LEUKOCYTE ESTERASE ,URINE NEGATIVE (NEGATIVE); NITRITE,URINE NEGATIVE (NEGATIVE); PROTEIN,URINE NEGATIVE (NEGATIVE)
[2020-04-06 01:28] LABS: BACTERIA,URINE NEGATIVE /HPF; SQUAMOUS EPITHELIAL CELL,UR 0-2 /HPF
[2020-04-06] MEDS ORDERED: DOXY100T2 PO (02:21)
--- NOTE | 2020-04-06 02:25 | NUR ---
DR. MAYFIELD UPDATED PT DAUGHTER ON PT CONDITION AND DC INSTRUCTIONS. PLAN TO DC HOME.
[2020-04-06 02:28] VITALS: BP 137/72
--- NOTE | 2020-04-06 02:28 | NUR ---
THIS CONTINUOUS WAVE OPERATOR/RN AMBULATED SIDE BY SIDE PT HE AMBULATED TO PRIVATE VEHICLE. FAMILY HAS NO FURTHER QUESTIONS OR CONCERNS AT THIS TIME.
--- NOTE | 2020-04-06 06:42 | Diagnostic Imaging Report ---
INDICATION: Shortness of breath COMPARISON: 03/31/2020 FINDINGS: Single view of the chest demonstrates clear lungs bilaterally. The heart is prominent but stable. There is no pneumothorax. Sternal wires midline. IMPRESSION: Stable cardiac enlargement without pulmonary edema or acute infiltrate. Dictated by: Dictated on workstation # [id number]
== END 2020-04-06 02:28 | disposition home or self-care (01) ==
LOC: EDUNIT# 22:57 → ER 22:58
DX: U07.1 COVID-19 (principal); E86.1 Hypovolemia; R42 Dizziness and giddiness; R53.1 Weakness; I10 Essential (primary) hypertension; Z79.82 Long term (current) use of aspirin; Z79.84 Long term (current) use of oral hypoglycemic drugs; Z79.01 Long term (current) use of anticoagulants; Z87.891 Personal history of nicotine dependence; Z95.2 Presence of prosthetic heart valve
CPT/HCPCS: 36415; 71045; 80053; 81000; 83735; 83880; 85025; 85610; 86141

== ENCOUNTER → 2020-08-16 | Outpatient (CLI) | payer MEDICARE, BC ==
[~2020-08-16] MED LIST changes: +DOXY100T2 PO
== END ==
LOC: CARD 12:00
PROVIDERS: ATTEND Internal Medicine Cardiovascular Disease
DX: I07.1 Rheumatic tricuspid insufficiency (principal); Z95.2 Presence of prosthetic heart valve
CPT/HCPCS: 93306

== ENCOUNTER → 2020-08-29 | Outpatient (CLI) | payer MEDICARE, BC ==
[~2020-08-29] VITALS: Ht 177 cm; Wt 97.0 kg
[~2020-08-29] MED LIST changes: +CATHETER FLUSH 10 ML SYR IV PRN; +REGADENOSON 0.4 MG/5 ML SYR (LEXISCAN) IV ONE
[2020-08-29 09:18] VITALS: BP 154/76
--- NOTE | 2020-08-29 12:54 | Cardiology Stress Test Report ---
Stress Test Report Date of Procedure/Referring: Date of Procedure: Aug 29, 2020 PCP Curtis Magdaleno MD Admitting Physician Ellyn Solo DO Indications: Chest pain Baseline Heart Rate: 78 Baseline Blood Pressure: Blood Pressure Systolic: 154 Blood Pressure Diastolic: 76 Baseline Vitals Vital Signs Date Time Temp Pulse Resp B/P (MAP) Pulse Ox O2 Delivery O2 Flow Rate FiO2 08/29/20 09:18 77 154/76 (102) 99 Room Air Baseline EKG: Baseline EKG: normal sinus rhythm, incomplete right bundle branch block Summary After explaining the procedure to the patient, he signed a consent and then brought to the stress nuclear laboratory. Patient received 0.4 mg Lexiscan for stress test, ECG, heart rate and blood pressure were monitored continuously. Resting and stress dose of radio tracer were injected, imaging was acquired and reviewed in short axis, horizontal long axis and vertical long axis views. TID: 0.94 SSS: 6 SDS: 5 EF: 59 1. Patient tolerated Lexiscan well 2. Diaphragmatic attenuation affecting the quality of the images there is mild decreased uptake at the mid to apical inferior wall with mild reversibility, small segment, cannot rule out coronary artery disease 3. Normal left ventricular size, EF 59 percent CURTIS MAGDALENO MD Aug 29, 2020 12:54
== END ==
LOC: CARD 08-22 07:45
PROVIDERS: ATTEND Internal Medicine Cardiovascular Disease
DX: I25.10 Atherosclerotic heart disease of native coronary artery without angina pectoris (principal)
CPT/HCPCS: 78452; 93017; A9502

== ENCOUNTER → 2020-09-10 | Outpatient (CLI) | payer MEDICARE, BC ==
[~2020-09-10] MED LIST changes: +AMLO-251 PO; -CATHETER FLUSH 10 ML SYR IV PRN; +CITA10TA7 PO; +CLN.2T PO; +FINA5TAB6 PO; +GABA-486 PO; +HYDR-3922 PO; +MELO15TA39 PO; +METO50TA7 PO; -REGADENOSON 0.4 MG/5 ML SYR (LEXISCAN) IV ONE; +ROSU5TAB13 PO; +TELM1TAB28 PO; +TMSL.4C PO; +WARF-48 PO
--- NOTE | 2020-09-10 14:31 | Diagnostic Imaging Report ---
PROCEDURE: CT head without contrast. TECHNIQUE: Multiple contiguous axial images were obtained through the brain without the use of intravenous contrast. Auto Exposure Controls were utilized during the CT exam to meet ALARA standards for radiation dose reduction. INDICATION: Dementia. Comparison is made with prior examination 12/01/2015. FINDINGS: The ventricles and sulci are within normal limits. There is no hydrocephalus or cerebral edema. There is no midline shift or mass effect. There is no intracranial mass, hemorrhage, or extra-axial fluid collection. The visualized paranasal sinuses and mastoid air cells are clear. There are no regional areas of decreased attenuation appreciated to suggest an acute CVA. IMPRESSION: No acute intracranial abnormality. Dictated by: Dictated on workstation # [id number]
== END ==
LOC: RAD 14:15
PROVIDERS: ATTEND Family Medicine
DX: F03.90 Unspecified dementia, unspecified severity, without behavioral disturbance, psychotic disturbance, mood disturbance, and anxiety (principal); I25.10 Atherosclerotic heart disease of native coronary artery without angina pectoris; U07.1 COVID-19
CPT/HCPCS: 70450

== ENCOUNTER 2020-09-12 09:00 | Day surgery (SDC) | payer MEDICARE, BC ==
[2020-09-12] VITALS (8 sets, daily range): BP systolic 127–162; BP diastolic 76–88
[~2020-09-12] VITALS: Ht 180 cm; Wt 98.0 kg
[2020-09-12 07:44] LABS: MEAN PLATELET VOLUME 10.8 fL (9.0-12.2); WHITE BLOOD COUNT 9.2 10^3/uL (4.3-11.0)
--- NOTE | 2020-09-12 07:50 | Diagnostic Imaging Report ---
INDICATION: Chest pain. Comparison with 04/05/2020. FINDINGS: Portable chest show the lungs to be well-aerated and clear. Heart is not enlarged. No pulmonary edema or hilar adenopathy. No pneumothorax or pleural effusion. No bony abnormalities. IMPRESSION: Normal portable chest. Dictated by: Dictated on workstation # [id number]
[2020-09-12 07:55] LABS: CHLORIDE 103 MMOL/L (98-107); SODIUM 136 MMOL/L (135-145)
[2020-09-12 07:56] LABS: ALBUMIN 4.8 GM/DL (3.2-4.5)
[2020-09-12 07:57] LABS: CALCIUM 9.4 MG/DL (8.5-10.1)
[2020-09-12 07:58] LABS: GLUCOSE 207 MG/DL (70-105); TOTAL PROTEIN 8.1 GM/DL (6.4-8.2); TRIGLYCERIDES 187 MG/DL (<150); VLDL CHOLESTEROL 37 MG/DL (5-40)
[2020-09-12 07:59] LABS: CARBON DIOXIDE 24 MMOL/L (21-32)
[2020-09-12 08:00] LABS: BILIRUBIN,TOTAL 1.2 MG/DL (0.1-1.0)
[2020-09-12 08:02] LABS: ALKALINE PHOSPHATASE 56 U/L (40-136); GFR ESTIMATED > 60
[2020-09-12 08:03] LABS: BUN/CREATININE RATIO 22; CHOLESTEROL 189 MG/DL (< 200); INR 1.2 (0.8-1.4)
[2020-09-12 08:04] LABS: HDL CHOLESTEROL 45 MG/DL (40-60)
[2020-09-12 08:05] LABS: ALANINE AMINOTRANSFERASE 37 U/L (0-55)
[~2020-09-12 09:00] MED LIST changes: +HEParin (CATH LAB) 2,000 ML IV ONE; +HEParin 1000 UNIT/ML (10ML VIAL) FOR BOLUS ONE; +LIDOCAINE 1% INJ 20 ML 20 ML VIAL ONE; +MIDAZOLAM 5 MG/5 ML (VERSED) VIAL ONE; +NITRO DRIP 25000 MCG/D5W 250 ML IV ONE; +NS IV 1000 ML 1,000 ML IV SCH; +NS IV 1000 ML 1,000 ML ONE; +VERAPAMIL 5 MG/2 ML (CALAN) VIAL IV ONE; +fentaNYL INJECTION 100 MCG/2 ML AMP ONE
[2020-09-12] MEDS ORDERED: NS IV 1000 ML 1,000 ML IV SCH (09:15)
--- NOTE | 2020-09-12 09:18 | Discharge Inst-Post CATH ---
Discharge Inst-CATH/EP Problems Reviewed?: Yes Post Cardiac Cath/EP D/C Inst Follow Up/Plan Hold metformin for 48 hours Restart Coumadin today Appointment with Dr. Magdaleno's office in 4 weeks <b>CARDIAC CATH/EP PROCEDURE DISCHARGE INSTRUCTIONS</b> ACTIVITY * Go Home directly and rest. * Limit activity of the leg (or wrist if it was used) for 7 days including aerobics, swimming, jogging, bicycling, etc. * Restrict stair-climbing for 7 days if possible, if not, climb up with your non-cath leg, then bring together on the same step. * Avoid lifting, pushing, pulling or excessive movement of the affected extremity for 7 days. * Customary sexual activity may be resumed after 2 days-use caution not to use a position that strains or causes pain to the affected extremity. * No driving for 24 hours. * NO SMOKING. * Avoid straining for bowel movements for 7 days. * Gentle walking on level ground is allowed. * Returning to work will depend on the type of procedure and the results. Your doctor will discuss this with you. CALL YOUR DOCTOR FOR ANY OF THE FOLLOWING: *If bleeding from the puncture site occurs- Apply gentle pressure to site with clean cloth and call your doctor or EMS. * If a knot or lump forms under the skin, increases in size, or causes pain. * If bruising appears to be worsening or moving further down your leg instead of disappearing. * Temperature above 101 F. CARE OF YOUR GROIN INCISION; * Bruising or purple discoloration of the skin near the puncture site is common. * You may shower only, no bathtub bathing for 5 days. Be careful to avoid slipping as your leg may feel stiff. * If a closure device was used on your femoral artery, please see the attached guide regarding care of the device and your leg. * Leave dressing on FOR 24 hours. CARE OF YOUR WRIST INCISION; * Bruising or purple discoloration of the skin near the puncture site is common. * You may shower. * DO NOT submerge wrist. * Leave dressing on FOR 24 hours. CURTIS MAGDALENO MD Sep 12, 2020 09:18
--- NOTE | 2020-09-12 09:23 | Cardiac Cath Report ---
Cardiac Cath Report Physician (s)/Travel Occupational Therapist (s) Physician CURTIS COLE MD Pre-Procedure Diagnosis Pre-Procedure Diagnosis: coronary artery disease Post-Procedure Note Procedure Start Date: Sep 12, 2020 Name of Procedure: Coronary angiogram Fluoroscopy of the aortic valve Findings/Procedure Note PROCEDURE NOTE: 70-year-old gentleman with history of aortic valve replacement, had an abnormal stress test suggestive of ischemia. Scheduled for coronary angiogram. After explaining the procedure to the patient, all pros and cons were explained, all questions were answered. The patient signed the consent and then he was placed on the cardiac catheterization laboratory. Groin was prepped SL fashion local anesthesia was used. Sheath placed in the right radial artery.[place] catheter used advanced to the right coronary system, angiogram was done, exchanged over long J-wire into FL5 Amharic catheter advanced to the left coronary system angiogram was done. At the end of the procedure the sheath was removed. Vascular band was used FINDINGS: Hemodynamics LV was not measured Aorta 108/73 mean of 72 ANATOMY: Left Main is free of any obstructive disease Left Anterior Descending is moderate in size tapering down into a very small artery after the second diagonal artery, nonobstructive disease Left Circumflex is moderate in size with mild disease nonobstructive disease Right Coronory Artery is dominant artery with mild ectasia in the midportion, slow flow in the midportion, small vessel disease nonobstructive disease CONCLUSION: 1. Mild ectasia in the mid right coronary artery with slow flow, small vessel disease nonobstructive disease 2. LAD system tapered down into a very small artery distally, small vessel disease nonobstructive disease 3. Fluoroscopy of the prosthetic aortic valve showed the valve in the aortic position functioning normally DISCUSSION AND RECOMMENDATION: medical therapy is recommended no intervention is needed Anesthesia Type: Conscious Sedation Estimated blood loss (mL): 10 ml Contrast Amount: 53 ml Total Radiation Dose: 492 mGy Post-Procedure Diagnosis Post-operative diagnosis: Coronary artery disease Aortic valve replacement Hypertension Hyperlipidemia CURTIS COLE MD Sep 12, 2020 09:23
== END 2020-09-12 11:50 | disposition home or self-care (01) ==
LOC: CATH 09:00 → SDC 09:45 → CATH 11:50
PROVIDERS: ATTEND Internal Medicine Cardiovascular Disease
DX: I25.10 Atherosclerotic heart disease of native coronary artery without angina pectoris (principal); I10 Essential (primary) hypertension; E78.2 Mixed hyperlipidemia; I65.23 Occlusion and stenosis of bilateral carotid arteries; E11.9 Type 2 diabetes mellitus without complications; M10.9 Gout, unspecified; E11.40 Type 2 diabetes mellitus with diabetic neuropathy, unspecified; Z79.82 Long term (current) use of aspirin; Z79.899 Other long term (current) drug therapy; Z79.84 Long term (current) use of oral hypoglycemic drugs; Z95.2 Presence of prosthetic heart valve
CPT/HCPCS: 71045; 80053; 80061; 85027; 85610; 85730; 87081; 93454; C1894; 36415

== ENCOUNTER 2021-09-21 08:15 | Emergency (ER) | payer BC, MEDICARE ==
[~2021-09-21 08:15] MED LIST changes: -CITA10TA7 PO; +CITA10TA9 PO; -HEParin (CATH LAB) 2,000 ML IV ONE; -HEParin 1000 UNIT/ML (10ML VIAL) FOR BOLUS ONE; -LIDOCAINE 1% INJ 20 ML 20 ML VIAL ONE; -MIDAZOLAM 5 MG/5 ML (VERSED) VIAL ONE; -NITRO DRIP 25000 MCG/D5W 250 ML IV ONE; -NS IV 1000 ML 1,000 ML IV SCH; -NS IV 1000 ML 1,000 ML ONE; -TELM1TAB28 PO; +TELM1TAB37 PO; -VERAPAMIL 5 MG/2 ML (CALAN) VIAL IV ONE; -fentaNYL INJECTION 100 MCG/2 ML AMP ONE
== END 2021-09-21 09:16 | disposition left against medical advice (07) ==
LOC: EDUNIT# 08:15 → ER 08:18
DX: J02.9 Acute pharyngitis, unspecified (principal)

== ENCOUNTER 2022-03-05 09:00 | Outpatient (RCR) | payer BC, MEDICARE | END 2022-03-27 | disposition home or self-care (01) | LOC: CARD 09:00 | PROVIDERS: ATTEND Internal Medicine Cardiovascular Disease | DX: I11.9 Hypertensive heart disease without heart failure (principal); I49.9 Cardiac arrhythmia, unspecified | CPT/HCPCS: 93306 ==

== ENCOUNTER 2022-05-21 08:19 | Day surgery (SDC) | payer MEDICARE ==
[~2022-05-21] VITALS: Ht 177.8 cm; Wt 96.5 kg
[2022-05-21] MEDS ORDERED: LIDOCAINE 1% INJ 20 ML VIAL ONE (08:29)
[2022-05-21] MEDS ORDERED: LIDOCAINE 1% INJ 20 ML VIAL INJ ONE (08:30)
[2022-05-21 08:43] VITALS: BP 138/71
--- NOTE | 2022-05-21 09:04 | Implantation of Loop Monitor ---
Implant of Loop Monitior IMPLANTATION OF LOOP MONITOR REPORT DATE OF PROCEDURE: 05/21/22 PREOP DIAGNOSIS: Palpitation, near syncope POSTOP DIAGNOSIS: Palpitation, near syncope PROCEDURE DETAILS: The patient is a 72 male with history of palpitation, multiple episodes of near syncope, unable to keep an event recorder or Holter monitor on. Therefore implantable loop recorder was discussed and agreed with the patient. Informed consent was taken. All risks and complications were discussed at length. The patient was draped and prepped in the usual sterile fashion. Local anesthesia was lidocaine, which was given in the substernal area close to the 4th intercostal space. Loop monitor [employer] with serial number [id number] was implanted according to the protocol. Steri-Strips were placed at the end of the procedure. There were no complications and the patient tolerated the procedure well. The device was interrogated with a voltage of. ANESTHESIA: Local anesthesia with lidocaine. COMPLICATIONS: None CONTRAST/FLUOROSCOPY: None CONCLUSION: Successful implantation of loop monitor with no complication FINAL DIAGNOSIS: Palpitation Near syncope Hypertension CURTIS COLE MD May 21, 2022 09:04
== END 2022-05-21 09:29 | disposition home or self-care (01) ==
LOC: CATH 08:19
PROVIDERS: ATTEND Internal Medicine Cardiovascular Disease
DX: R00.2 Palpitations (principal); R55 Syncope and collapse; I10 Essential (primary) hypertension; I25.10 Atherosclerotic heart disease of native coronary artery without angina pectoris; I65.23 Occlusion and stenosis of bilateral carotid arteries; M10.9 Gout, unspecified; E11.40 Type 2 diabetes mellitus with diabetic neuropathy, unspecified; E78.2 Mixed hyperlipidemia; I49.9 Cardiac arrhythmia, unspecified; R74.8 Abnormal levels of other serum enzymes; Z95.2 Presence of prosthetic heart valve; Z79.84 Long term (current) use of oral hypoglycemic drugs; Z87.891 Personal history of nicotine dependence
CPT/HCPCS: 33285; C1764

== ENCOUNTER 2022-05-21 18:23 | Emergency (ER) | payer MEDICARE ==
[~2022-05-21] VITALS: Ht 172 cm; Wt 96.5 kg
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
[2022-05-21 18:54] LABS: BASOPHILS # (AUTO) 0.1 10^3/uL (0.0-0.1); BASOPHILS % (AUTO) 1 % (0-10); EOSINOPHILS # (AUTO) 0.1 10^3/uL (0.0-0.3); EOSINOPHILS % (AUTO) 1 % (0-10); HEMATOCRIT 36 % (40-54); HEMOGLOBIN 11.8 g/dL (13.3-17.7); LYMPHOCYTES # (AUTO) 1.4 10^3/uL (1.0-4.0); LYMPHOCYTES % (AUTO) 16 % (12-44); MEAN CORPUSCULAR HEMOGLOBIN 32 pg (25-34); MEAN CORPUSCULAR HGB CONC 33 g/dL (32-36); MEAN CORPUSCULAR VOLUME 97 fL (80-99); MEAN PLATELET VOLUME 10.4 fL (9.0-12.2); MONOCYTES # (AUTO) 0.6 10^3/uL (0.0-1.0); MONOCYTES % (AUTO) 7 % (0-12); NEUTROPHILS # (AUTO) 6.6 10^3/uL (1.8-7.8); NEUTROPHILS % (AUTO) 75 % (42-75); PLATELET COUNT 166 10^3/uL (130-400); WHITE BLOOD COUNT 8.8 10^3/uL (4.3-11.0)
[2022-05-21] MEDS ORDERED: TETANUS,DIPTH,PERTUSS P/F (BOOSTRIX) 0.5 ML VIAL IM ONE (19:00)
[2022-05-21 19:07] LABS: INR 2.3 (0.8-1.4); PROTHROMBIN TIME PATIENT 25.7 SEC (12.2-14.7)
[2022-05-21 19:08] LABS: ALBUMIN 4.3 GM/DL (3.2-4.5); POTASSIUM 4.2 MMOL/L (3.6-5.0)
[2022-05-21 19:09] LABS: CALCIUM 9.4 MG/DL (8.5-10.1)
[2022-05-21 19:10] LABS: TOTAL PROTEIN 7.3 GM/DL (6.4-8.2)
[2022-05-21 19:12] LABS: BILIRUBIN,TOTAL 0.4 MG/DL (0.1-1.0)
[2022-05-21 19:14] LABS: CREATININE SERUM 1.06 MG/DL (0.60-1.30)
[2022-05-21] MEDS ORDERED: NS 100 ML (IVPB) BAG IV ONE (19:15)
[2022-05-21] MEDS ORDERED: HOLD METFORMIN - RECEIVED CONTRAST 20 ML VIAL IV SCH (19:15)
[2022-05-21] MEDS ORDERED: IOHEXOL 350 MG/ML 100 ML (OMNIPAQUE 350) VIAL IV ONE (19:15)
[2022-05-21 19:25] LABS: CREATINE KINASE MB 4.9 NG/ML (<6.6)
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
[2022-05-21] MEDS ORDERED: NS IV 1000 ML 1,000 ML IV SCH (20:00)
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
[2022-05-21 20:12] LABS: BILIRUBIN,URINE NEGATIVE (NEGATIVE); CLARITY,URINE SL CLOUDY; COLOR,URINE YELLOW; GLUCOSE, URINE (UA) NEGATIVE (NEGATIVE); KETONES,URINE NEGATIVE (NEGATIVE); LEUKOCYTE ESTERASE ,URINE NEGATIVE (NEGATIVE); NITRITE,URINE NEGATIVE (NEGATIVE); PROTEIN,URINE NEGATIVE (NEGATIVE)
[2022-05-21 20:39] LABS: BACTERIA,URINE TRACE /HPF; WBC,URINE 0-2 /HPF
[2022-05-21 21:04] VITALS: BP 140/779
== END 2022-05-21 20:59 | disposition home or self-care (01) ==
LOC: EDUNIT# 18:23 → ER 18:25
DX: S70.11XA Contusion of right thigh, initial encounter (principal); S70.01XA Contusion of right hip, initial encounter; S09.90XA Unspecified injury of head, initial encounter; E86.0 Dehydration; Z86.79 Personal history of other diseases of the circulatory system; Z87.891 Personal history of nicotine dependence; Z23 Encounter for immunization; Z79.01 Long term (current) use of anticoagulants; V09.9XXA Pedestrian injured in unspecified transport accident, initial encounter; Y92.410 Unspecified street and highway as the place of occurrence of the external cause
CPT/HCPCS: 36415; 70450; 71045; 71260; 72125; 72128; 72131; 72170; 73552; 74177; 80053; 81000; 82150; 82550; 82553; 83690; 83735; 83874; 85025; 85610; 85730; 90471; 90715; 93041

== ENCOUNTER → 2022-09-12 | Outpatient (CLI) | payer MEDICARE | LOC: CARD 10:04 | PROVIDERS: ATTEND Internal Medicine Cardiovascular Disease | DX: I11.9 Hypertensive heart disease without heart failure (principal); I35.1 Nonrheumatic aortic (valve) insufficiency; Z95.2 Presence of prosthetic heart valve | CPT/HCPCS: 93306 ==

== ENCOUNTER → 2023-07-15 | Outpatient (CLI) | payer MEDICARE ==
--- NOTE | 2023-07-15 09:13 | Diagnostic Imaging Report ---
CLINICAL INDICATION: Patient is having memory loss. Exam: MRI of the brain performed without IV contrast. Sequences include axial DWI, ADC map, axial T1, axial T2, axial FLAIR, coronal gradient echo, and sagittal T1. Comparison: CT scan of the head and cervical spine without contrast dated 05/21/2022. Findings: There is no evidence of acute cerebral infarct, intracranial hemorrhage, or gross mass effect. There is diffuse brain parenchymal volume loss. There are multiple focal and confluent areas of high T2 signal white matter changes involving both cerebral hemispheres and periventricular regions, likely related to chronic small vessel ischemic disease and leukoaraiosis. There is normal carranza-white matter distinction. There is no significant midline shift or herniation. The visualized mary's igloo of [place] vascular structures are unremarkable. The pituitary gland, sella, and suprasellar regions are unremarkable as visualized. There is no evidence of hydrocephalus. The basal cisterns are unremarkable. The skull, extracranial soft tissue, and orbits are unremarkable. There is minimal mucosal thickening involving the ethmoid sinus and sphenoid sinus. Temporal bones show no significant abnormality. IMPRESSION: 1: There is no evidence of acute intracranial process. 2: There are age-related brain parenchymal changes including diffuse brain parenchymal volume loss, chronic small vessel ischemic disease and mild leukoaraiosis. Dictated by: Dictated on workstation # [id number]
== END ==
LOC: RAD 07:41
PROVIDERS: ATTEND Family Medicine
DX: I67.81 Acute cerebrovascular insufficiency (principal); I67.89 Other cerebrovascular disease; R41.3 Other amnesia
CPT/HCPCS: 70551